=== PATIENT | male | born 1970 | race Two or more races ===

== ENCOUNTER 2020-06-08 22:50 | Inpatient (IN) | payer OTHER, MEDICAID ==
[~2020-06-08] VITALS: Ht 167.6 cm; Wt 115.6 kg
[~2020-06-08 22:50] MED LIST: CLIN75CA2 PO
[2020-06-08] MEDS ORDERED: LORazepam 2MG/ML-1ML VIAL ONE (23:55)
[2020-06-09] VITALS (10 sets, daily range): BP systolic 94–153; BP diastolic 55–104
[2020-06-09] MEDS ORDERED: ETOMIDATE (2MG/ML) 20ML VIAL IV ONE ×2 (00:19→00:36)
[2020-06-09] MEDS ORDERED: SUCCINYLCHOLINE CHLORIDE 20 MG/ML 10ML VIAL IV ONE ×2 (00:20→00:37)
[2020-06-09] MEDS ORDERED: MIDAZOLAM HCL 5 MG/ML-1ML VIAL ONE (00:20)
[2020-06-09] MEDS ORDERED: LACTATED RINGER'S 1,000 ML IV ONE (00:30)
[2020-06-09] MEDS ORDERED: LORazepam 2MG/ML-1ML VIAL IV ONE (00:30)
[2020-06-09] MEDS ORDERED: MIDAZOLAM HCL 5 MG/ML-1ML VIAL IV ONE (00:35)
[2020-06-09] MEDS ORDERED: MIDAZOLAM DRIP 50 mg/50mL 50 ML IV ONE (00:44)
[2020-06-09] MEDS: MIDAZOLAM DRIP 50 mg/50mL 50 ML IV SCH (00:50)
[2020-06-09] MEDS ORDERED: PROPOFOL 100 ML IV ONE (01:20)
[2020-06-09] MEDS ORDERED: PIPERACILLIN-TAZO 4.5GM 100 ML IV ONE (01:30)
[2020-06-09] MEDS ORDERED: DexAMETHasone SOD PHOS 10MG/1ML VIAL INJ IV ONE (01:30)
[2020-06-09] MEDS ORDERED: AZITHROMYCIN 500MG/ 250ML 250 ML IV ONE (01:30)
[2020-06-09] MEDS: PROPOFOL 100 ML IV SCH (01:31)
[2020-06-09 02:20] LABS: Basophils # (auto) 0 10 ^3/uL (0-0.2); Basophils % (auto) 0.1 % (0.0-2.0); Eosinophils # (auto) 0 10 ^3/uL (0-0.8); Hematocrit 31.1 % (41.0-53.0); Hemoglobin 10.4 g/dL (13.5-17.5); Lymphocytes # (auto) 0.4 10 ^3/uL (0.4-5.4); Lymphocytes % (auto) 7.5 % (10.0-50.0); Mean Corpuscular Hemoglobin 27.2 pg (28.0-32.0); Mean Corpuscular Hgb Conc. 33.4 g/dL (32.0-36.0); Mean Corpuscular Volume 81.3 fL (80.0-100.0); Monocytes # (auto) 0.2 10 ^3/uL (0-1.3); Neutrophils # (auto) 5.2 10 ^3/uL (1.6-8.6); Neutrophils % (auto) 89.4 % (37.0-80.0); Platelet Count (auto) 280 10^3/uL (140-450); Red Blood Cells 3.83 10^6/uL (4.5-5.90); Red Cell Distribution Width 13.6 % (11.8-14.3); White Blood Cell 5.9 10^3/uL (4.4-10.8)
[2020-06-09 02:34] LABS: Partial Thromboplastin Time 29.2 sec (23.0-31.2)
[2020-06-09 02:38] LABS: Albumin 2.5 g/dL (3.4-5.0); BUN/Creatinine Ratio 10.5; Calcium 7.5 mg/dL (8.5-10.1); Magnesium 1.9 mg/dL (1.6-2.6); Potassium 3.2 mmol/L (3.5-5.1)
[2020-06-09 02:42] LABS: Bilirubin, Total 0.5 mg/dL (0.2-1.0); Total Protein 6.3 g/dL (6.4-8.2)
[2020-06-09] MEDS ORDERED: MORPHINE SULF INJ 2 MG/ML SYRINGE 1ML IV PRN ×2 (03:00)
[2020-06-09] MEDS ORDERED: DOCUSATE SOD 100 MG CAP PO PRN (03:00)
[2020-06-09] MEDS ORDERED: ACETAMINOPHEN 500 MG TAB PO PRN (03:00)
[2020-06-09] MEDS ORDERED: LORazepam 0.5 MG TAB PO PRN (03:00)
[2020-06-09] MEDS ORDERED: HYDROcodone-ACET 5/325MG TAB PO PRN (03:00)
[2020-06-09] MEDS ORDERED: HYDROmorphone HCL 2 MG/ML VL IV PRN (03:00)
[2020-06-09] MEDS ORDERED: MAGNESIUM SULFATE 1GM/100ML 100 ML IV ONE (03:00)
[2020-06-09] MEDS ORDERED: NITROGLYCERIN 0.4 MG SL TAB SL PRN (03:00)
[2020-06-09] MEDS ORDERED: FUROSEMIDE 20 MG/2 ML VIAL IV ONE (03:00)
[2020-06-09] MEDS ORDERED: METOCLOPRAMIDE HCL 5MG/ml INJ 2ml VIAL IV PRN (03:00)
[2020-06-09 03:15] LABS: Lactate Dehydrogenase 447 U/L (87-241)
[2020-06-09 04:05] LABS: CRP High Sensitivity > 19.0 mg/dL (< 0.3)
[2020-06-09 04:59] LABS: Cholesterol 101 mg/dL (< 200); HDL Cholesterol 35 mg/dL (40-59); LDL Cholesterol 53 mg/dL (< 100); Triglycerides 121 mg/dL (< 150)
[2020-06-09] MEDS: SODIUM CHLOR 0.9% PF (SALINE LOCK) 10ML VIAL/SYR IV SCH ×3 (06:00→23:10)
[2020-06-09] MEDS ORDERED: ALBUTEROL SULF HFA 90MCG INH 200DOSE IN SCH (06:00)
[2020-06-09] MEDS: BUDESONIDE (INHALATION) 0.5 MG/2 ML NEB NEB SCH ×2 (06:10→22:13)
[2020-06-09] MEDS: ALBUTEROL SULF 2.5 MG/0.5ML(0.5%) NEB SOLN NEB SCH ×3 (06:10→22:13)
[2020-06-09 06:55] LABS: Urine Bacteria NONE SEEN /hpf (None Seen); Urine Blood Negative /uL (Negative); Urine Hyaline Cast FEW /lpf (0 - 2); Urine Mucus FEW (None Seen); Urine Specific Gravity 1.016 (1.001-1.035); Urine WBC 2 /hpf (0 - 3)
[2020-06-09] MEDS ORDERED: fentaNYL Drip 2500mCg/250mlNS 250 ML IV ONE (07:59)
[2020-06-09] MEDS: fentaNYL Drip 2500mCg/250mlNS 250 ML IV SCH (07:59)
[2020-06-09 09:07] LABS: Potassium 3.4 mmol/L (3.5-5.1)
[2020-06-09] MEDS: POTASSIUM CHL 20MEQ/100ML 100 ML IV SCH ×2 (09:22→12:33)
[2020-06-09] MEDS: PIPERACILLIN-TAZOB 3.375GM 100 ML IV SCH ×3 (09:23→23:10)
[2020-06-09] MEDS ORDERED: BUDESONIDE (INHALATION) 180 MCG IH IN SCH (10:00)
[2020-06-09] MEDS: FUROSEMIDE 40 MG/4 ML VIAL IV SCH ×2 (12:33→23:09)
[2020-06-09] MEDS: ENOXAPARIN SOD 40 MG/0.4 ML SYRINGE SC SCH ×2 (12:33→23:09)
[2020-06-09] MEDS: ASCORBIC ACID 1,000 MG TAB PO SCH (12:33)
[2020-06-09] MEDS: CHOLECALCIFEROL (VITD3) 2,000 UNIT CAP PO SCH (12:33)
[2020-06-09] MEDS: DOXYCYCLINE 100MG/250ML 250 ML IV SCH ×2 (12:33→23:10)
[2020-06-09] MEDS: ZINC SULFATE 220mg CAP or TAB PO SCH (12:33)
[2020-06-09] MEDS ORDERED: DexAMETHasone SOD PHOS 4 MG/1ML SDV INJ ONE (13:15)
[2020-06-09] MEDS: FAMOTIDINE INJECTION 40 MG in SODIUM CHL 0.9% 100 ML IV SCH (13:17)
[2020-06-09] MEDS: DexAMETHasone SOD PHOS 10MG/1ML VIAL INJ IV SCH (13:17)
[2020-06-09] MEDS ORDERED: REMDESIVIR PER PHARMACY IV SCH (19:30)
[2020-06-09] MEDS ORDERED: REMDESIVIR 200 MG in NS 210ml LOADING DOSE ADULT IV ONE (21:00)
[2020-06-10] MEDS: PROPOFOL 100 ML IV SCH (02:05)
[2020-06-10] MEDS: MIDAZOLAM DRIP 50 mg/50mL 50 ML IV SCH (02:06)
[2020-06-10] MEDS ORDERED: ALBUTEROL SULF 2.5 MG/0.5ML(0.5%) NEB SOLN NEB ONE (02:15)
[2020-06-10] MEDS ORDERED: ALBUTEROL SULF 2.5 MG/0.5ML(0.5%) NEB SOLN ONE (02:17)
[2020-06-10 02:40] VITALS: BP 113/65
[2020-06-10] MEDS: PIPERACILLIN-TAZOB 3.375GM 100 ML IV SCH ×3 (05:45→21:45)
[2020-06-10] MEDS: ALBUTEROL SULF 2.5 MG/0.5ML(0.5%) NEB SOLN NEB SCH (06:00)
[2020-06-10] MEDS: SODIUM CHLOR 0.9% PF (SALINE LOCK) 10ML VIAL/SYR IV SCH ×3 (06:04→21:44)
[2020-06-10 06:50] VITALS: BP 131/69
[2020-06-10 06:51] LABS: Basophils # (auto) 0 10 ^3/uL (0-0.2); Basophils % (auto) 0.2 % (0.0-2.0); Eosinophils # (auto) 0 10 ^3/uL (0-0.8); Mean Corpuscular Hgb Conc. 32.8 g/dL (32.0-36.0); Mean Corpuscular Volume 82.2 fL (80.0-100.0); Monocytes # (auto) 0.5 10 ^3/uL (0-1.3); Red Cell Distribution Width 13.7 % (11.8-14.3)
[2020-06-10 06:55] LABS: Eosinophils % (auto) 0.3 % (0.0-7.0); Hematocrit 33.5 % (41.0-53.0); Lymphocytes # (auto) 0.6 10 ^3/uL (0.4-5.4); Lymphocytes % (auto) 6.8 % (10.0-50.0); Monocytes % (auto) 5.5 % (0.0-12.0); Neutrophils # (auto) 8.2 10 ^3/uL (1.6-8.6); Neutrophils % (auto) 87.2 % (37.0-80.0); Nucleated Red Blood Cells % 0.1 %; Platelet Count (auto) 275 10^3/uL (140-450); Red Blood Cells 4.08 10^6/uL (4.5-5.90); White Blood Cell 9.4 10^3/uL (4.4-10.8)
[2020-06-10 07:06] LABS: INR 0.95 (0.9-1.15); Partial Thromboplastin Time 21.1 sec (23.0-31.2)
[2020-06-10 07:10] LABS: Albumin 2.4 g/dL (3.4-5.0); Calcium 8.6 mg/dL (8.5-10.1); Magnesium 2.6 mg/dL (1.6-2.6); Potassium 4.4 mmol/L (3.5-5.1)
[2020-06-10 07:15] LABS: Bilirubin, Total 0.3 mg/dL (0.2-1.0); Total Protein 6.2 g/dL (6.4-8.2)
[2020-06-10] MEDS: BUDESONIDE (INHALATION) 0.5 MG/2 ML NEB NEB SCH (07:39)
[2020-06-10] MEDS: fentaNYL Drip 2500mCg/250mlNS 250 ML IV SCH (09:38)
[2020-06-10] MEDS: FUROSEMIDE 40 MG/4 ML VIAL IV SCH ×2 (09:50→21:45)
[2020-06-10] MEDS: DexAMETHasone SOD PHOS 10MG/1ML VIAL INJ IV SCH (09:50)
[2020-06-10] MEDS: ENOXAPARIN SOD 40 MG/0.4 ML SYRINGE SC SCH ×2 (09:51→21:44)
[2020-06-10] MEDS: ZINC SULFATE 220mg CAP or TAB PO SCH (09:51)
[2020-06-10] MEDS: CHOLECALCIFEROL (VITD3) 2,000 UNIT CAP PO SCH (09:51)
[2020-06-10] MEDS: ASCORBIC ACID 1,000 MG TAB PO SCH (09:51)
[2020-06-10] MEDS: DOXYCYCLINE 100MG/250ML 250 ML IV SCH ×2 (09:51→21:45)
[2020-06-10 09:58] VITALS: BP 132/76
[2020-06-10] MEDS: FAMOTIDINE INJECTION 40 MG in SODIUM CHL 0.9% 100 ML IV SCH (10:08)
[2020-06-10 14:33] VITALS: BP 127/70
[2020-06-10] MEDS: ACETAMINOPHEN 500 MG TAB PO PRN ×2 (15:06→22:14)
[2020-06-10] MEDS: REMDESIVIR 100 MG in SODIUM CHL 0.9% 250 ML IV SCH (17:19)
[2020-06-10 18:00] VITALS: BP 113/61
[2020-06-10 22:00] VITALS: BP 121/68
[2020-06-11] MEDS: ALBUTEROL SULF 2.5 MG/0.5ML(0.5%) NEB SOLN NEB SCH ×4 (01:34→18:32)
[2020-06-11] MEDS: BUDESONIDE (INHALATION) 0.5 MG/2 ML NEB NEB SCH ×3 (01:35→18:32)
[2020-06-11] MEDS: MIDAZOLAM DRIP 50 mg/50mL 50 ML IV SCH (01:45)
[2020-06-11] MEDS: PROPOFOL 100 ML IV SCH (02:00)
[2020-06-11 02:05] VITALS: BP 126/70
[2020-06-11] MEDS: ACETAMINOPHEN 500 MG TAB PO PRN (04:11)
[2020-06-11] MEDS: PIPERACILLIN-TAZOB 3.375GM 100 ML IV SCH ×3 (05:37→22:00)
[2020-06-11] MEDS: SODIUM CHLOR 0.9% PF (SALINE LOCK) 10ML VIAL/SYR IV SCH ×3 (05:38→22:00)
[2020-06-11 06:03] VITALS: BP 134/64
[2020-06-11 06:46] LABS: Basophils # (auto) 0 10 ^3/uL (0-0.2); Basophils % (auto) 0.2 % (0.0-2.0); Eosinophils # (auto) 0 10 ^3/uL (0-0.8); Eosinophils % (auto) 0.1 % (0.0-7.0); Hematocrit 32.8 % (41.0-53.0); Lymphocytes # (auto) 0.8 10 ^3/uL (0.4-5.4); Red Blood Cells 4.01 10^6/uL (4.5-5.90)
[2020-06-11 06:48] LABS: Hemoglobin 11.3 g/dL (13.5-17.5); Lymphocytes % (auto) 8.2 % (10.0-50.0); Mean Corpuscular Hemoglobin 28.2 pg (28.0-32.0); Mean Corpuscular Hgb Conc. 34.4 g/dL (32.0-36.0); Monocytes # (auto) 0.4 10 ^3/uL (0-1.3); Monocytes % (auto) 4.7 % (0.0-12.0); Neutrophils # (auto) 8.1 10 ^3/uL (1.6-8.6); Neutrophils % (auto) 86.8 % (37.0-80.0); Nucleated Red Blood Cells % 0.1 %; Platelet Count (auto) 291 10^3/uL (140-450); Red Cell Distribution Width 13.7 % (11.8-14.3); White Blood Cell 9.4 10^3/uL (4.4-10.8)
[2020-06-11 07:07] LABS: Potassium 3.9 mmol/L (3.5-5.1)
[2020-06-11 07:13] LABS: Calcium 8.3 mg/dL (8.5-10.1); Magnesium 2.4 mg/dL (1.6-2.6)
[2020-06-11] MEDS: fentaNYL Drip 2500mCg/250mlNS 250 ML IV SCH ×2 (09:30→21:42)
[2020-06-11] MEDS: CHOLECALCIFEROL (VITD3) 2,000 UNIT CAP PO SCH (10:00)
[2020-06-11] MEDS: DexAMETHasone SOD PHOS 10MG/1ML VIAL INJ IV SCH (10:00)
[2020-06-11] MEDS: ZINC SULFATE 220mg CAP or TAB PO SCH (10:00)
[2020-06-11] MEDS: FAMOTIDINE INJECTION 40 MG in SODIUM CHL 0.9% 100 ML IV SCH (10:00)
[2020-06-11] MEDS: ASCORBIC ACID 1,000 MG TAB PO SCH (10:00)
[2020-06-11 10:11] VITALS: BP 136/59
[2020-06-11] MEDS: DOXYCYCLINE 100MG/250ML 250 ML IV SCH ×2 (11:25→22:00)
[2020-06-11] MEDS: FUROSEMIDE 40 MG/4 ML VIAL IV SCH (11:25)
[2020-06-11] MEDS: ENOXAPARIN SOD 40 MG/0.4 ML SYRINGE SC SCH ×2 (11:27→22:00)
[2020-06-11] MEDS: SODIUM CHLORIDE 0.9% 1,000 ML IV SCH ×2 (13:10→22:47)
[2020-06-11 15:04] VITALS: BP 144/73
[2020-06-11 18:32] VITALS: BP 148/60
[2020-06-11] MEDS: REMDESIVIR 100 MG in SODIUM CHL 0.9% 250 ML IV SCH (18:38)
[2020-06-11 21:55] VITALS: BP 135/61
[2020-06-12] MEDS: MIDAZOLAM DRIP 50 mg/50mL 50 ML IV SCH (01:07)
[2020-06-12] MEDS: PROPOFOL 100 ML IV SCH (01:08)
[2020-06-12 01:25] VITALS: BP 126/52
[2020-06-12 01:58] LABS: Basophils # (auto) 0 10 ^3/uL (0-0.2); Basophils % (auto) 0.1 % (0.0-2.0); Eosinophils # (auto) 0 10 ^3/uL (0-0.8); Eosinophils % (auto) 0.2 % (0.0-7.0); Hematocrit 28.7 % (41.0-53.0); Hemoglobin 9.5 g/dL (13.5-17.5); Lymphocytes # (auto) 0.5 10 ^3/uL (0.4-5.4); Lymphocytes % (auto) 5.1 % (10.0-50.0); Mean Corpuscular Hemoglobin 27.4 pg (28.0-32.0); Mean Corpuscular Hgb Conc. 33.2 g/dL (32.0-36.0); Mean Corpuscular Volume 82.5 fL (80.0-100.0); Monocytes # (auto) 0.3 10 ^3/uL (0-1.3); Monocytes % (auto) 3.3 % (0.0-12.0); Neutrophils % (auto) 91.3 % (37.0-80.0); Platelet Count (auto) 225 10^3/uL (140-450); Red Blood Cells 3.48 10^6/uL (4.5-5.90); Red Cell Distribution Width 13.6 % (11.8-14.3); White Blood Cell 9.8 10^3/uL (4.4-10.8)
[2020-06-12] MEDS: SODIUM CHLOR 0.9% PF (SALINE LOCK) 10ML VIAL/SYR IV SCH ×3 (05:56→22:16)
[2020-06-12] MEDS: PIPERACILLIN-TAZOB 3.375GM 100 ML IV SCH ×3 (06:14→22:24)
[2020-06-12 07:14] VITALS: BP 134/57
[2020-06-12] MEDS: ALBUTEROL SULF 2.5 MG/0.5ML(0.5%) NEB SOLN NEB SCH ×2 (07:14→14:40)
[2020-06-12] MEDS: BUDESONIDE (INHALATION) 0.5 MG/2 ML NEB NEB SCH ×2 (07:14→22:00)
[2020-06-12] MEDS: SODIUM CHLORIDE 0.9% 1,000 ML IV SCH ×2 (08:30→18:14)
[2020-06-12] MEDS ORDERED: ACETAMINOPHEN 650 mg PER 20.3 mL UD PO ONE (08:30)
[2020-06-12] MEDS: FUROSEMIDE 20 MG/2 ML VIAL IV SCH (09:16)
[2020-06-12] MEDS: DexAMETHasone SOD PHOS 10MG/1ML VIAL INJ IV SCH (09:16)
[2020-06-12] MEDS: DOXYCYCLINE 100MG/250ML 250 ML IV SCH ×2 (09:16→22:24)
[2020-06-12] MEDS: CHOLECALCIFEROL (VITD3) 2,000 UNIT CAP PO SCH (09:17)
[2020-06-12] MEDS: ZINC SULFATE 220mg CAP or TAB PO SCH (09:17)
[2020-06-12] MEDS: ENOXAPARIN SOD 40 MG/0.4 ML SYRINGE SC SCH ×2 (09:17→22:16)
[2020-06-12] MEDS: ASCORBIC ACID 1,000 MG TAB PO SCH (09:17)
[2020-06-12 09:29] LABS: Basophils # (auto) 0 10 ^3/uL (0-0.2); Eosinophils # (auto) 0 10 ^3/uL (0-0.8); Eosinophils % (auto) 0.4 % (0.0-7.0); Lymphocytes # (auto) 0.7 10 ^3/uL (0.4-5.4); Monocytes # (auto) 0.4 10 ^3/uL (0-1.3)
[2020-06-12 09:31] LABS: Basophils % (auto) 0.3 % (0.0-2.0); Hematocrit 30.9 % (41.0-53.0); Hemoglobin 10.2 g/dL (13.5-17.5); Lymphocytes % (auto) 6.2 % (10.0-50.0); Mean Corpuscular Hemoglobin 27.1 pg (28.0-32.0); Mean Corpuscular Hgb Conc. 32.8 g/dL (32.0-36.0); Mean Corpuscular Volume 82.5 fL (80.0-100.0); Monocytes % (auto) 3.5 % (0.0-12.0); Neutrophils # (auto) 9.4 10 ^3/uL (1.6-8.6); Neutrophils % (auto) 89.6 % (37.0-80.0); Platelet Count (auto) 238 10^3/uL (140-450); Red Blood Cells 3.75 10^6/uL (4.5-5.90); Red Cell Distribution Width 13.9 % (11.8-14.3); White Blood Cell 10.5 10^3/uL (4.4-10.8)
[2020-06-12 09:45] LABS: Albumin 1.9 g/dL (3.4-5.0); Calcium 8.1 mg/dL (8.5-10.1); Potassium 4.2 mmol/L (3.5-5.1)
[2020-06-12 09:51] LABS: BUN/Creatinine Ratio 26.5; Bilirubin, Total 0.6 mg/dL (0.2-1.0); Total Protein 5.3 g/dL (6.4-8.2)
[2020-06-12] MEDS ORDERED: ACETAMINOPHEN IV 1000 MG/100ML (10MG/ML) IV ONE (10:00)
[2020-06-12] MEDS: PATIENTS OWN MEDICATION PO SCH (10:00)
[2020-06-12] MEDS: FAMOTIDINE INJECTION 40 MG in SODIUM CHL 0.9% 100 ML IV SCH (10:00)
[2020-06-12 10:10] VITALS: BP 108/49
[2020-06-12 14:40] VITALS: BP 106/52
[2020-06-12] MEDS: REMDESIVIR 100 MG in SODIUM CHL 0.9% 250 ML IV SCH (17:16)
[2020-06-12 18:10] VITALS: BP 119/48
[2020-06-12] MEDS: ACETAMINOPHEN 500 MG TAB PO PRN (22:16)
[2020-06-12 22:20] VITALS: BP 102/51
[2020-06-13] MEDS: ALBUTEROL SULF 2.5 MG/0.5ML(0.5%) NEB SOLN NEB SCH ×4 (00:09→18:48)
[2020-06-13] MEDS: MIDAZOLAM DRIP 50 mg/50mL 50 ML IV SCH (02:00)
[2020-06-13] MEDS: PROPOFOL 100 ML IV SCH (02:00)
[2020-06-13 02:20] VITALS: BP 101/50
[2020-06-13] MEDS: SODIUM CHLORIDE 0.9% 1,000 ML IV SCH ×2 (04:34→14:32)
[2020-06-13] MEDS: PIPERACILLIN-TAZOB 3.375GM 100 ML IV SCH ×3 (05:28→22:00)
[2020-06-13] MEDS: SODIUM CHLOR 0.9% PF (SALINE LOCK) 10ML VIAL/SYR IV SCH ×3 (05:29→22:00)
[2020-06-13] MEDS: ACETAMINOPHEN 500 MG TAB PO PRN ×2 (05:43→18:16)
[2020-06-13 05:55] VITALS: BP 104/48
[2020-06-13] MEDS: BUDESONIDE (INHALATION) 0.5 MG/2 ML NEB NEB SCH ×2 (05:55→18:48)
[2020-06-13] MEDS ORDERED: ACETAMINOPHEN 650 mg PER 20.3 mL UD ONE (07:37)
[2020-06-13 07:41] LABS: Basophils # (auto) 0 10 ^3/uL (0-0.2); Eosinophils # (auto) 0 10 ^3/uL (0-0.8); Hemoglobin 10.1 g/dL (13.5-17.5); Lymphocytes # (auto) 0.5 10 ^3/uL (0.4-5.4); Mean Corpuscular Volume 82.6 fL (80.0-100.0); Monocytes # (auto) 0.5 10 ^3/uL (0-1.3); Monocytes % (auto) 5.4 % (0.0-12.0); Nucleated Red Blood Cells % 0.1 %; White Blood Cell 9.1 10^3/uL (4.4-10.8)
[2020-06-13 07:43] LABS: Basophils % (auto) 0.2 % (0.0-2.0); Eosinophils % (auto) 0.1 % (0.0-7.0); Hematocrit 30.7 % (41.0-53.0); Lymphocytes % (auto) 5.9 % (10.0-50.0); Mean Corpuscular Hemoglobin 27.1 pg (28.0-32.0); Mean Corpuscular Hgb Conc. 32.8 g/dL (32.0-36.0); Neutrophils % (auto) 88.4 % (37.0-80.0); Platelet Count (auto) 231 10^3/uL (140-450); Red Blood Cells 3.71 10^6/uL (4.5-5.90); Red Cell Distribution Width 13.9 % (11.8-14.3)
[2020-06-13 08:04] LABS: Albumin 1.9 g/dL (3.4-5.0); Calcium 8.6 mg/dL (8.5-10.1); Potassium 4.8 mmol/L (3.5-5.1)
[2020-06-13 08:08] LABS: BUN/Creatinine Ratio 37.7; Bilirubin, Total 0.4 mg/dL (0.2-1.0); Total Protein 5.9 g/dL (6.4-8.2)
[2020-06-13] MEDS: fentaNYL Drip 2500mCg/250mlNS 250 ML IV SCH (09:45)
[2020-06-13 09:55] VITALS: BP 105/53
[2020-06-13] MEDS: PATIENTS OWN MEDICATION PO SCH (10:42)
[2020-06-13] MEDS: ENOXAPARIN SOD 40 MG/0.4 ML SYRINGE SC SCH ×2 (10:42→23:00)
[2020-06-13] MEDS: DexAMETHasone SOD PHOS 10MG/1ML VIAL INJ IV SCH (11:35)
[2020-06-13] MEDS: DOXYCYCLINE 100MG/250ML 250 ML IV SCH ×2 (11:35→23:00)
[2020-06-13] MEDS: FUROSEMIDE 20 MG/2 ML VIAL IV SCH (11:35)
[2020-06-13] MEDS: CHOLECALCIFEROL (VITD3) 2,000 UNIT CAP PO SCH (11:36)
[2020-06-13] MEDS: ZINC SULFATE 220mg CAP or TAB PO SCH (11:36)
[2020-06-13] MEDS: ASCORBIC ACID 1,000 MG TAB PO SCH (11:36)
[2020-06-13 13:30] VITALS: BP 110/51
[2020-06-13] MEDS: FAMOTIDINE INJECTION 40 MG in SODIUM CHL 0.9% 100 ML IV SCH (14:07)
[2020-06-13] MEDS: REMDESIVIR 100 MG in SODIUM CHL 0.9% 250 ML IV SCH (17:17)
[2020-06-13 18:48] VITALS: BP 114/56
[2020-06-13 22:14] VITALS: BP 119/55
[2020-06-14] MEDS: SODIUM CHLORIDE 0.9% 1,000 ML IV SCH ×3 (00:30→20:38)
[2020-06-14 01:27] VITALS: BP 115/54
[2020-06-14] MEDS: PROPOFOL 100 ML IV SCH (01:45)
[2020-06-14] MEDS: MIDAZOLAM DRIP 50 mg/50mL 50 ML IV SCH (01:45)
[2020-06-14] MEDS: SODIUM CHLOR 0.9% PF (SALINE LOCK) 10ML VIAL/SYR IV SCH ×3 (06:15→22:23)
[2020-06-14] MEDS: PIPERACILLIN-TAZOB 3.375GM 100 ML IV SCH ×3 (06:27→22:23)
[2020-06-14 07:03] VITALS: BP 110/57
[2020-06-14] MEDS: ALBUTEROL SULF 2.5 MG/0.5ML(0.5%) NEB SOLN NEB SCH ×3 (07:09→22:00)
[2020-06-14] MEDS: BUDESONIDE (INHALATION) 0.5 MG/2 ML NEB NEB SCH ×2 (07:09→22:00)
[2020-06-14] MEDS: PATIENTS OWN MEDICATION PO SCH (10:00)
[2020-06-14] MEDS: fentaNYL Drip 2500mCg/250mlNS 250 ML IV SCH (10:37)
[2020-06-14] MEDS ORDERED: ACETAMINOPHEN 325 MG RECT SUPP PR ONE (10:45)
[2020-06-14 10:48] VITALS: BP 114/53
[2020-06-14] MEDS ORDERED: ACETAMINOPHEN 650 MG RECT SUPP PR ONE ×2 (10:53→12:45)
[2020-06-14] MEDS: ZINC SULFATE 220mg CAP or TAB PO SCH (11:00)
[2020-06-14] MEDS: ENOXAPARIN SOD 40 MG/0.4 ML SYRINGE SC SCH ×2 (11:00→22:23)
[2020-06-14] MEDS: CHOLECALCIFEROL (VITD3) 2,000 UNIT CAP PO SCH (11:00)
[2020-06-14] MEDS: ASCORBIC ACID 1,000 MG TAB PO SCH (11:00)
[2020-06-14] MEDS: FUROSEMIDE 20 MG/2 ML VIAL IV SCH (11:00)
[2020-06-14] MEDS: DexAMETHasone SOD PHOS 10MG/1ML VIAL INJ IV SCH (11:00)
[2020-06-14] MEDS ORDERED: FAMOTIDINE (10MG/ML) 2ML VL IV ONE (12:55)
[2020-06-14] MEDS: FAMOTIDINE INJECTION 40 MG in SODIUM CHL 0.9% 100 ML IV SCH (13:05)
[2020-06-14 14:48] VITALS: BP 136/59
[2020-06-14 19:16] VITALS: BP 123/52
[2020-06-14 21:45] VITALS: BP 125/67
[2020-06-14] MEDS: ACETAMINOPHEN 500 MG TAB PO PRN (22:39)
[2020-06-15] VITALS (48 sets, daily range): BP systolic 103–172; BP diastolic 41–82
[2020-06-15] MEDS: MIDAZOLAM DRIP 50 mg/50mL 50 ML IV SCH ×4 (01:49→22:00)
[2020-06-15] MEDS: PROPOFOL 100 ML IV SCH ×6 (01:49→21:00)
[2020-06-15] MEDS: ALBUTEROL SULF 2.5 MG/0.5ML(0.5%) NEB SOLN NEB SCH ×3 (06:00→23:35)
[2020-06-15] MEDS: BUDESONIDE (INHALATION) 0.5 MG/2 ML NEB NEB SCH ×2 (06:00→23:35)
[2020-06-15] MEDS: SODIUM CHLOR 0.9% PF (SALINE LOCK) 10ML VIAL/SYR IV SCH ×3 (06:02→22:25)
[2020-06-15] MEDS: PIPERACILLIN-TAZOB 3.375GM 100 ML IV SCH ×3 (06:02→22:25)
[2020-06-15] MEDS: SODIUM CHLORIDE 0.9% 1,000 ML IV SCH ×2 (06:02→16:30)
[2020-06-15] MEDS: ENOXAPARIN SOD 40 MG/0.4 ML SYRINGE SC SCH ×2 (09:54→22:25)
[2020-06-15] MEDS: FUROSEMIDE 20 MG/2 ML VIAL IV SCH (09:54)
[2020-06-15] MEDS: ASCORBIC ACID 1,000 MG TAB PO SCH (09:55)
[2020-06-15] MEDS: CHOLECALCIFEROL (VITD3) 2,000 UNIT CAP PO SCH (09:55)
[2020-06-15] MEDS: ZINC SULFATE 220mg CAP or TAB PO SCH (09:55)
[2020-06-15] MEDS: PATIENTS OWN MEDICATION PO SCH (10:00)
[2020-06-15] MEDS: fentaNYL Drip 2500mCg/250mlNS 250 ML IV SCH ×2 (10:20→20:00)
[2020-06-15] MEDS: DexAMETHasone SOD PHOS 10MG/1ML VIAL INJ IV SCH (10:40)
[2020-06-15 11:18] LABS: Basophils # (auto) 0 10 ^3/uL (0-0.2); Basophils % (auto) 0.3 % (0.0-2.0); Eosinophils # (auto) 0.1 10 ^3/uL (0-0.8); Monocytes # (auto) 0.8 10 ^3/uL (0-1.3)
[2020-06-15 11:29] LABS: Potassium 4.3 mmol/L (3.5-5.1)
[2020-06-15 11:30] LABS: BUN/Creatinine Ratio 52.9; Calcium 8.2 mg/dL (8.5-10.1); Magnesium 2.3 mg/dL (1.6-2.6)
[2020-06-15 11:42] LABS: Eosinophils % (auto) 0.9 % (0.0-7.0); Hematocrit 32.3 % (41.0-53.0); Hemoglobin 10.6 g/dL (13.5-17.5); Lymphocytes # (auto) 0.8 10 ^3/uL (0.4-5.4); Lymphocytes % (auto) 8.5 % (10.0-50.0); Mean Corpuscular Hemoglobin 28.3 pg (28.0-32.0); Mean Corpuscular Hgb Conc. 32.8 g/dL (32.0-36.0); Mean Corpuscular Volume 86.4 fL (80.0-100.0); Monocytes % (auto) 8.8 % (0.0-12.0); Neutrophils # (auto) 7.8 10 ^3/uL (1.6-8.6); Neutrophils % (auto) 81.5 % (37.0-80.0); Platelet Count (auto) 200 10^3/uL (140-450); Red Blood Cells 3.74 10^6/uL (4.5-5.90); Red Cell Distribution Width 13.6 % (11.8-14.3); White Blood Cell 9.5 10^3/uL (4.4-10.8)
[2020-06-15] MEDS ORDERED: VANCOMYCIN 1GM/250ML 250 ML IV ONE (13:45)
[2020-06-15] MEDS ORDERED: VANCOMYCIN PER PHARMACY 0 MG IV SCH (13:45)
[2020-06-15] MEDS: FAMOTIDINE INJECTION 40 MG in SODIUM CHL 0.9% 100 ML IV SCH (14:58)
[2020-06-15 16:23] LABS: INR 1.09 (0.9-1.15); Partial Thromboplastin Time 23.5 sec (23.0-31.2)
[2020-06-15] MEDS: Jevity 1.2 Cal/Fiber 1 Liter GT SCH (20:00)
[2020-06-15] MEDS: VANCOMYCIN 1GM/250ML 250 ML IV SCH (21:00)
[2020-06-16] VITALS (93 sets, daily range): BP systolic 80–206; BP diastolic 22–88
[2020-06-16] MEDS: PROPOFOL 100 ML IV SCH ×9 (00:30→22:15)
[2020-06-16] MEDS: MIDAZOLAM DRIP 50 mg/50mL 50 ML IV SCH ×4 (01:43→17:12)
[2020-06-16] MEDS: SODIUM CHLORIDE 0.9% 1,000 ML IV SCH ×3 (01:52→16:48)
[2020-06-16] MEDS: VANCOMYCIN 1GM/250ML 250 ML IV SCH ×3 (05:00→16:59)
[2020-06-16 05:33] LABS: Basophils # (auto) 0 10 ^3/uL (0-0.2); Eosinophils # (auto) 0.1 10 ^3/uL (0-0.8); Eosinophils % (auto) 1.9 % (0.0-7.0); Monocytes # (auto) 0.4 10 ^3/uL (0-1.3); Neutrophils # (auto) 4.4 10 ^3/uL (1.6-8.6); Nucleated Red Blood Cells % 0.1 %
[2020-06-16 05:37] LABS: Basophils % (auto) 0.3 % (0.0-2.0); Lymphocytes # (auto) 0.6 10 ^3/uL (0.4-5.4); Lymphocytes % (auto) 11.4 % (10.0-50.0); Monocytes % (auto) 7.3 % (0.0-12.0); Neutrophils % (auto) 79.1 % (37.0-80.0)
[2020-06-16 05:48] LABS: Potassium 4.9 mmol/L (3.5-5.1)
[2020-06-16] MEDS: SODIUM CHLOR 0.9% PF (SALINE LOCK) 10ML VIAL/SYR IV SCH ×3 (05:48→22:00)
[2020-06-16] MEDS: PIPERACILLIN-TAZOB 3.375GM 100 ML IV SCH ×2 (05:48→18:03)
[2020-06-16 05:55] LABS: Albumin 1.7 g/dL (3.4-5.0); BUN/Creatinine Ratio 66.7; Bilirubin, Total 0.4 mg/dL (0.2-1.0); Calcium 7.9 mg/dL (8.5-10.1); Magnesium 2.4 mg/dL (1.6-2.6); Total Protein 5.2 g/dL (6.4-8.2)
[2020-06-16 06:24] LABS: Hematocrit 29.2 % (41.0-53.0); Hemoglobin 9.6 g/dL (13.5-17.5); Mean Corpuscular Hemoglobin 26.9 pg (28.0-32.0); Mean Corpuscular Volume 81.8 fL (80.0-100.0); Platelet Count (auto) 158 10^3/uL (140-450); Red Blood Cells 3.56 10^6/uL (4.5-5.90); Red Cell Distribution Width 13.2 % (11.8-14.3); White Blood Cell 6.5 10^3/uL (4.4-10.8)
[2020-06-16 06:35] LABS: Mean Corpuscular Hgb Conc. 32.9 g/dL (32.0-36.0)
[2020-06-16] MEDS: ACETAMINOPHEN 500 MG TAB PO PRN (06:40)
[2020-06-16] MEDS: fentaNYL Drip 2500mCg/250mlNS 250 ML IV SCH ×2 (09:05→20:23)
[2020-06-16] MEDS: ENOXAPARIN SOD 40 MG/0.4 ML SYRINGE SC SCH ×2 (09:36→22:00)
[2020-06-16] MEDS: FUROSEMIDE 20 MG/2 ML VIAL IV SCH (09:37)
[2020-06-16] MEDS: CHOLECALCIFEROL (VITD3) 2,000 UNIT CAP PO SCH (09:38)
[2020-06-16] MEDS: ZINC SULFATE 220mg CAP or TAB PO SCH (09:38)
[2020-06-16] MEDS: ASCORBIC ACID 1,000 MG TAB PO SCH (09:38)
[2020-06-16] MEDS: DexAMETHasone SOD PHOS 10MG/1ML VIAL INJ IV SCH (09:39)
[2020-06-16] MEDS: PATIENTS OWN MEDICATION PO SCH (09:40)
[2020-06-16] MEDS: BUDESONIDE (INHALATION) 0.5 MG/2 ML NEB NEB SCH ×2 (09:59→21:45)
[2020-06-16] MEDS: ALBUTEROL SULF 2.5 MG/0.5ML(0.5%) NEB SOLN NEB SCH ×3 (09:59→21:45)
[2020-06-16] MEDS: NOREPINEPHRINE 8 MG/250ML KIT 250 ML IV SCH ×2 (10:15→16:39)
[2020-06-16] MEDS ORDERED: NOREPINEPHRINE 8 MG/250ML KIT 250 ML IV ONE (10:21)
[2020-06-16] MEDS ORDERED: PHENYLEPHRINE IV 250 ML IV ONE (10:38)
[2020-06-16] MEDS: PHENYLEPHRINE IV 250 ML IV SCH ×2 (10:41→19:20)
[2020-06-16] MEDS ORDERED: LORazepam 2MG/ML-1ML VIAL ONE (10:50)
[2020-06-16] MEDS ORDERED: ROCURONIUM 10MG/ML 10ML VIAL IV ONE (11:15)
[2020-06-16] MEDS ORDERED: EPINEPHrine HCL 1 MG/1 ML AMP ONE (11:20)
[2020-06-16] MEDS ORDERED: FLUMAZENIL 0.1 MG/ML INJ 10ML MDV IV ONE (11:20)
[2020-06-16] MEDS ORDERED: SODIUM CHLORIDE LOCK 0 ML ONE (11:20)
[2020-06-16] MEDS ORDERED: LIDOCAINE 2%HCL (LOCAL ANESTH.) INJ 20ML MDV ONE (11:20)
[2020-06-16] MEDS ORDERED: fentaNYL CITRATE 100 MCG/2 ML VL ONE (11:20)
[2020-06-16] MEDS ORDERED: LIDOCAINE HCL 2% TOP JELLY 5ML TOP ONE (11:20)
[2020-06-16] MEDS ORDERED: MIDAZOLAM HCL 5 MG/ML-1ML VIAL ONE (11:21)
[2020-06-16] MEDS ORDERED: FUROSEMIDE 40 MG/4 ML VIAL IV ONE (12:45)
[2020-06-16] MEDS ORDERED: ACETYLCYSTEINE 20%(200MG/ML) SOL 4ML ONE (13:35)
[2020-06-16] MEDS: FAMOTIDINE INJECTION 40 MG in SODIUM CHL 0.9% 100 ML IV SCH (13:41)
[2020-06-17] VITALS (93 sets, daily range): BP systolic 95–148; BP diastolic 42–66
[2020-06-17] MEDS: Jevity 1.2 Cal/Fiber 1 Liter GT SCH
[2020-06-17] MEDS: VANCOMYCIN 1GM/250ML 250 ML IV SCH ×2 (00:34→08:07)
[2020-06-17] MEDS: PIPERACILLIN-TAZOB 3.375GM 100 ML IV SCH ×3 (02:00→18:22)
[2020-06-17] MEDS: PHENYLEPHRINE IV 250 ML IV SCH ×3 (03:40→20:20)
[2020-06-17 04:26] LABS: Basophils # (auto) 0 10 ^3/uL (0-0.2); Eosinophils # (auto) 0 10 ^3/uL (0-0.8); Monocytes # (auto) 0.4 10 ^3/uL (0-1.3); Nucleated Red Blood Cells % 0.1 %
[2020-06-17 04:28] LABS: Basophils % (auto) 0.3 % (0.0-2.0); Lymphocytes # (auto) 0.6 10 ^3/uL (0.4-5.4); Lymphocytes % (auto) 7.3 % (10.0-50.0); Monocytes % (auto) 5.2 % (0.0-12.0); Neutrophils # (auto) 7.3 10 ^3/uL (1.6-8.6); Neutrophils % (auto) 87.2 % (37.0-80.0)
[2020-06-17] MEDS: MIDAZOLAM DRIP 50 mg/50mL 50 ML IV SCH ×3 (05:00→16:35)
[2020-06-17 05:02] LABS: Magnesium 2.3 mg/dL (1.6-2.6); Potassium 4.7 mmol/L (3.5-5.1)
[2020-06-17 05:04] LABS: BUN/Creatinine Ratio 35.3
[2020-06-17 05:34] LABS: Hemoglobin 9.8 g/dL (13.5-17.5); Mean Corpuscular Hemoglobin 26.7 pg (28.0-32.0); Mean Corpuscular Hgb Conc. 32.6 g/dL (32.0-36.0); Mean Corpuscular Volume 81.8 fL (80.0-100.0); Platelet Count (auto) 206 10^3/uL (140-450); Red Blood Cells 3.66 10^6/uL (4.5-5.90); Red Cell Distribution Width 13.4 % (11.8-14.3)
[2020-06-17] MEDS: SODIUM CHLOR 0.9% PF (SALINE LOCK) 10ML VIAL/SYR IV SCH ×4 (06:21→22:20)
[2020-06-17] MEDS: PROPOFOL 100 ML IV SCH ×7 (06:24→22:40)
[2020-06-17] MEDS: fentaNYL Drip 2500mCg/250mlNS 250 ML IV SCH ×2 (06:25→18:30)
[2020-06-17] MEDS: BUDESONIDE (INHALATION) 0.5 MG/2 ML NEB NEB SCH ×2 (06:30→22:01)
[2020-06-17] MEDS: ALBUTEROL SULF 2.5 MG/0.5ML(0.5%) NEB SOLN NEB SCH ×3 (06:30→22:01)
[2020-06-17] MEDS: NOREPINEPHRINE 8 MG/250ML KIT 250 ML IV SCH ×2 (08:08→17:15)
[2020-06-17] MEDS: SODIUM CHLORIDE 0.9% 1,000 ML IV SCH ×2 (08:10→18:22)
[2020-06-17] MEDS: FUROSEMIDE 20 MG/2 ML VIAL IV SCH (09:29)
[2020-06-17] MEDS: ENOXAPARIN SOD 40 MG/0.4 ML SYRINGE SC SCH ×2 (09:32→22:20)
[2020-06-17] MEDS: ASCORBIC ACID 1,000 MG TAB PO SCH (09:32)
[2020-06-17] MEDS: ZINC SULFATE 220mg CAP or TAB PO SCH (09:32)
[2020-06-17] MEDS: DexAMETHasone SOD PHOS 10MG/1ML VIAL INJ IV SCH (09:33)
[2020-06-17] MEDS: CHOLECALCIFEROL (VITD3) 2,000 UNIT CAP PO SCH (09:34)
[2020-06-17] MEDS: FAMOTIDINE INJECTION 40 MG in SODIUM CHL 0.9% 100 ML IV SCH (11:02)
[2020-06-17] MEDS: ACETAMINOPHEN 500 MG TAB PO PRN ×2 (15:02→22:30)
[2020-06-18] VITALS (98 sets, daily range): BP systolic 87–154; BP diastolic 39–66
[2020-06-18] MEDS: MIDAZOLAM DRIP 50 mg/50mL 50 ML IV SCH ×6 (01:11→23:22)
[2020-06-18] MEDS: PIPERACILLIN-TAZOB 3.375GM 100 ML IV SCH ×2 (02:00→09:47)
[2020-06-18] MEDS: PROPOFOL 100 ML IV SCH ×7 (04:20→23:22)
[2020-06-18] MEDS: PHENYLEPHRINE IV 250 ML IV SCH ×2 (04:40→13:00)
[2020-06-18] MEDS: SODIUM CHLORIDE 0.9% 1,000 ML IV SCH ×3 (06:00→17:09)
[2020-06-18] MEDS: SODIUM CHLOR 0.9% PF (SALINE LOCK) 10ML VIAL/SYR IV SCH ×5 (06:00→21:59)
[2020-06-18] MEDS: fentaNYL Drip 2500mCg/250mlNS 250 ML IV SCH ×2 (07:00→17:11)
[2020-06-18] MEDS: ALBUTEROL SULF 2.5 MG/0.5ML(0.5%) NEB SOLN NEB SCH ×3 (07:21→18:52)
[2020-06-18 08:06] LABS: BUN/Creatinine Ratio 35.6; Calcium 8.1 mg/dL (8.5-10.1); Potassium 4.7 mmol/L (3.5-5.1)
[2020-06-18 08:41] LABS: Basophils # (auto) 0 10 ^3/uL (0-0.2); Basophils % (auto) 0.1 % (0.0-2.0); Eosinophils # (auto) 0 10 ^3/uL (0-0.8); Hematocrit 25.1 % (41.0-53.0); Hemoglobin 8.2 g/dL (13.5-17.5); Lymphocytes # (auto) 0.9 10 ^3/uL (0.4-5.4); Lymphocytes % (auto) 10.3 % (10.0-50.0); Mean Corpuscular Hemoglobin 27.6 pg (28.0-32.0); Mean Corpuscular Hgb Conc. 32.8 g/dL (32.0-36.0); Mean Corpuscular Volume 84.2 fL (80.0-100.0); Monocytes # (auto) 0.6 10 ^3/uL (0-1.3); Monocytes % (auto) 6.6 % (0.0-12.0); Neutrophils # (auto) 7.6 10 ^3/uL (1.6-8.6); Nucleated Red Blood Cells % 0.4 %; Platelet Count (auto) 195 10^3/uL (140-450); Red Blood Cells 2.98 10^6/uL (4.5-5.90); Red Cell Distribution Width 13.7 % (11.8-14.3); White Blood Cell 9.1 10^3/uL (4.4-10.8)
[2020-06-18] MEDS ORDERED: VANCOMYCIN 1GM/250ML 250 ML IV SCH (09:15)
[2020-06-18] MEDS: FUROSEMIDE 20 MG/2 ML VIAL IV SCH (09:46)
[2020-06-18] MEDS: DexAMETHasone SOD PHOS 10MG/1ML VIAL INJ IV SCH (09:46)
[2020-06-18] MEDS: ZINC SULFATE 220mg CAP or TAB PO SCH (09:48)
[2020-06-18] MEDS: ASCORBIC ACID 1,000 MG TAB PO SCH (09:48)
[2020-06-18] MEDS: ENOXAPARIN SOD 40 MG/0.4 ML SYRINGE SC SCH ×2 (09:48→22:00)
[2020-06-18] MEDS: CHOLECALCIFEROL (VITD3) 2,000 UNIT CAP PO SCH (09:49)
[2020-06-18] MEDS: BUDESONIDE (INHALATION) 0.5 MG/2 ML NEB NEB SCH ×2 (10:00→18:52)
[2020-06-18] MEDS ORDERED: TPN PER PHARMACY 0 ML IV SCH (11:00)
[2020-06-18] MEDS: FAMOTIDINE INJECTION 40 MG in SODIUM CHL 0.9% 100 ML IV SCH (11:03)
[2020-06-18 14:19] LABS: Magnesium 2.4 mg/dL (1.6-2.6); Phosphorus 3.3 mg/dL (2.5-4.90)
[2020-06-18] MEDS: AMINO ACID INFUSION IN D10W 1,000 ML IV NR (19:58)
[2020-06-18] MEDS ORDERED: AMINO ACID INFUSION IN D5W 2,000 ML IV NR (20:00)
[2020-06-18] MEDS ORDERED: levETIRAcetam 500 MG/5ML INJ IV ONE (22:18)
[2020-06-19] VITALS (100 sets, daily range): BP systolic 76–142; BP diastolic 41–81
[2020-06-19] MEDS ORDERED: DEXTROSE (50%) 50ML SYRG IV SCH
[2020-06-19] MEDS: InsuLIN REG 1unit/0.01ml Soln (100units/ml) SC SCH ×5 (00:36→23:53)
[2020-06-19] MEDS: PROPOFOL 100 ML IV SCH ×7 (01:22→22:52)
[2020-06-19] MEDS: MIDAZOLAM DRIP 50 mg/50mL 50 ML IV SCH ×2 (03:03→05:32)
[2020-06-19 04:31] LABS: Eosinophils # (auto) 0 10 ^3/uL (0-0.8); Eosinophils % (auto) 0.2 % (0.0-7.0); Hemoglobin 7.1 g/dL (13.5-17.5); Lymphocytes # (auto) 0.9 10 ^3/uL (0.4-5.4); Neutrophils # (auto) 4.7 10 ^3/uL (1.6-8.6); White Blood Cell 6.2 10^3/uL (4.4-10.8)
[2020-06-19 04:32] LABS: Basophils # (auto) 0.1 10 ^3/uL (0-0.2); Basophils % (auto) 1.2 % (0.0-2.0); Hematocrit 19.1 % (41.0-53.0); Lymphocytes % (auto) 14.5 % (10.0-50.0); Mean Corpuscular Hemoglobin 34.5 pg (28.0-32.0); Mean Corpuscular Hgb Conc. 37.1 g/dL (32.0-36.0); Mean Corpuscular Volume 93.1 fL (80.0-100.0); Monocytes # (auto) 0.5 10 ^3/uL (0-1.3); Monocytes % (auto) 8.2 % (0.0-12.0); Neutrophils % (auto) 75.9 % (37.0-80.0); Nucleated Red Blood Cells % 0.4 %; Platelet Count (auto) 160 10^3/uL (140-450); Red Blood Cells 2.05 10^6/uL (4.5-5.90); Red Cell Distribution Width 12.8 % (11.8-14.3)
[2020-06-19 04:46] LABS: Magnesium 2.4 mg/dL (1.6-2.6); Potassium 4.1 mmol/L (3.5-5.1)
[2020-06-19 04:57] LABS: Albumin 1.9 g/dL (3.4-5.0); BUN/Creatinine Ratio 47.9; Bilirubin, Total 0.4 mg/dL (0.2-1.0); CRP High Sensitivity 2.98 mg/dL (< 0.3); Phosphorus 3.2 mg/dL (2.5-4.90); Total Protein 5.2 g/dL (6.4-8.2)
[2020-06-19] MEDS: fentaNYL Drip 2500mCg/250mlNS 250 ML IV SCH (05:37)
[2020-06-19] MEDS: SODIUM CHLOR 0.9% PF (SALINE LOCK) 10ML VIAL/SYR IV SCH ×5 (05:41→22:00)
[2020-06-19] MEDS: ACCU-CHEK COMFORT CURVE STRIP VI SCH ×5 (05:41→23:53)
[2020-06-19] MEDS: BUDESONIDE (INHALATION) 0.5 MG/2 ML NEB NEB SCH ×2 (07:54→22:46)
[2020-06-19] MEDS: ALBUTEROL SULF 2.5 MG/0.5ML(0.5%) NEB SOLN NEB SCH ×3 (07:55→22:46)
[2020-06-19] MEDS: FUROSEMIDE 20 MG/2 ML VIAL IV SCH (10:00)
[2020-06-19] MEDS: NOREPINEPHRINE 8 MG/250ML KIT 250 ML IV SCH (10:15)
[2020-06-19] MEDS: ZINC SULFATE 220mg CAP or TAB PO SCH (11:40)
[2020-06-19] MEDS: DexAMETHasone SOD PHOS 10MG/1ML VIAL INJ IV SCH (11:40)
[2020-06-19] MEDS: ASCORBIC ACID 1,000 MG TAB PO SCH (11:41)
[2020-06-19] MEDS: CHOLECALCIFEROL (VITD3) 2,000 UNIT CAP PO SCH (11:41)
[2020-06-19] MEDS: SODIUM CHLORIDE 0.9% 1,000 ML IV SCH (11:43)
[2020-06-19] MEDS: ENOXAPARIN SOD 40 MG/0.4 ML SYRINGE SC SCH ×2 (14:00→22:00)
[2020-06-19] MEDS: PHENYLEPHRINE IV 250 ML IV SCH ×2 (14:00→22:20)
[2020-06-19] MEDS: FAMOTIDINE INJECTION 40 MG in SODIUM CHL 0.9% 100 ML IV SCH (14:14)
[2020-06-19] MEDS: AMINO ACID INFUSION IN D10W 1,000 ML IV NR (19:49)
[2020-06-19] MEDS ORDERED: FUROSEMIDE 40 MG/4 ML VIAL IV ONE (20:00)
[2020-06-19] MEDS ORDERED: TPN PER PHARMACY IV NR ×6 (20:00)
[2020-06-20] VITALS (87 sets, daily range): BP systolic 71–156; BP diastolic 43–78
[2020-06-20 04:50] LABS: Basophils # (auto) 0 10 ^3/uL (0-0.2); Eosinophils # (auto) 0.1 10 ^3/uL (0-0.8); Monocytes # (auto) 0.6 10 ^3/uL (0-1.3); White Blood Cell 7.8 10^3/uL (4.4-10.8)
[2020-06-20 04:54] LABS: Basophils % (auto) 0.3 % (0.0-2.0); Eosinophils % (auto) 1.4 % (0.0-7.0); Hematocrit 22.4 % (41.0-53.0); Hemoglobin 7.8 g/dL (13.5-17.5); Lymphocytes # (auto) 1.3 10 ^3/uL (0.4-5.4); Lymphocytes % (auto) 16.7 % (10.0-50.0); Mean Corpuscular Hgb Conc. 34.9 g/dL (32.0-36.0); Mean Corpuscular Volume 88.6 fL (80.0-100.0); Monocytes % (auto) 7.3 % (0.0-12.0); Neutrophils # (auto) 5.8 10 ^3/uL (1.6-8.6); Neutrophils % (auto) 74.3 % (37.0-80.0); Nucleated Red Blood Cells % 0.2 %; Platelet Count (auto) 188 10^3/uL (140-450); Red Blood Cells 2.53 10^6/uL (4.5-5.90); Red Cell Distribution Width 12.9 % (11.8-14.3)
[2020-06-20 05:08] LABS: Potassium 3.4 mmol/L (3.5-5.1)
[2020-06-20 05:18] LABS: Albumin 1.9 g/dL (3.4-5.0); BUN/Creatinine Ratio 50.9; Bilirubin, Total 0.4 mg/dL (0.2-1.0); Calcium 8.1 mg/dL (8.5-10.1); Magnesium 2.4 mg/dL (1.6-2.6); Phosphorus 2.4 mg/dL (2.5-4.90)
[2020-06-20] MEDS ORDERED: MIDAZOLAM HCL 10 ML IV ONE (05:51)
[2020-06-20] MEDS: SODIUM CHLOR 0.9% PF (SALINE LOCK) 10ML VIAL/SYR IV SCH ×5 (06:00→23:16)
[2020-06-20] MEDS: InsuLIN REG 1unit/0.01ml Soln (100units/ml) SC SCH ×3 (06:00→17:51)
[2020-06-20] MEDS: ACCU-CHEK COMFORT CURVE STRIP VI SCH ×3 (06:00→17:51)
[2020-06-20] MEDS: PHENYLEPHRINE IV 250 ML IV SCH ×3 (06:40→23:20)
[2020-06-20] MEDS: ALBUTEROL SULF 2.5 MG/0.5ML(0.5%) NEB SOLN NEB SCH ×3 (06:50→19:35)
[2020-06-20] MEDS: PROPOFOL 100 ML IV SCH ×7 (09:06→22:45)
[2020-06-20] MEDS: ACETAMINOPHEN 500 MG TAB PO PRN (09:07)
[2020-06-20] MEDS: MIDAZOLAM DRIP 50 mg/50mL 50 ML IV SCH ×3 (09:54→17:23)
[2020-06-20] MEDS: BUDESONIDE (INHALATION) 0.5 MG/2 ML NEB NEB SCH ×2 (10:00→19:35)
[2020-06-20] MEDS: DexAMETHasone SOD PHOS 10MG/1ML VIAL INJ IV SCH (10:06)
[2020-06-20] MEDS: FUROSEMIDE 20 MG/2 ML VIAL IV SCH (10:10)
[2020-06-20] MEDS: FAMOTIDINE INJECTION 40 MG in SODIUM CHL 0.9% 100 ML IV SCH (10:12)
[2020-06-20] MEDS: NOREPINEPHRINE 8 MG/250ML KIT 250 ML IV SCH (10:15)
[2020-06-20] MEDS: ZINC SULFATE 220mg CAP or TAB PO SCH (10:21)
[2020-06-20] MEDS: ASCORBIC ACID 1,000 MG TAB PO SCH (10:22)
[2020-06-20] MEDS: ENOXAPARIN SOD 40 MG/0.4 ML SYRINGE SC SCH ×2 (10:22→23:16)
[2020-06-20] MEDS: CHOLECALCIFEROL (VITD3) 2,000 UNIT CAP PO SCH (10:22)
[2020-06-20] MEDS: fentaNYL Drip 2500mCg/250mlNS 250 ML IV SCH (17:25)
[2020-06-20] MEDS: TPN PER PHARMACY IV NR ×8 (20:28)
[2020-06-21] VITALS (98 sets, daily range): BP systolic 84–138; BP diastolic 42–69
[2020-06-21] MEDS: PROPOFOL 100 ML IV SCH ×10 (00:30→23:07)
[2020-06-21] MEDS: MIDAZOLAM DRIP 50 mg/50mL 50 ML IV SCH ×5 (03:00→20:38)
[2020-06-21] MEDS: ACCU-CHEK COMFORT CURVE STRIP VI SCH ×4 (06:00→18:07)
[2020-06-21] MEDS: InsuLIN REG 1unit/0.01ml Soln (100units/ml) SC SCH ×4 (06:00→18:07)
[2020-06-21] MEDS: SODIUM CHLOR 0.9% PF (SALINE LOCK) 10ML VIAL/SYR IV SCH ×5 (06:02→22:00)
[2020-06-21 06:09] LABS: Basophils # (auto) 0 10 ^3/uL (0-0.2); Eosinophils # (auto) 0.2 10 ^3/uL (0-0.8); Lymphocytes # (auto) 0.9 10 ^3/uL (0.4-5.4); Monocytes # (auto) 0.5 10 ^3/uL (0-1.3); Red Blood Cells 2.19 10^6/uL (4.5-5.90); White Blood Cell 6.5 10^3/uL (4.4-10.8)
[2020-06-21 06:11] LABS: Basophils % (auto) 0.5 % (0.0-2.0); Lymphocytes % (auto) 13.1 % (10.0-50.0); Mean Corpuscular Hemoglobin 32.2 pg (28.0-32.0); Mean Corpuscular Hgb Conc. 33.6 g/dL (32.0-36.0); Mean Corpuscular Volume 95.7 fL (80.0-100.0); Monocytes % (auto) 7.6 % (0.0-12.0); Neutrophils # (auto) 4.9 10 ^3/uL (1.6-8.6); Neutrophils % (auto) 75.8 % (37.0-80.0); Nucleated Red Blood Cells % 0.2 %; Platelet Count (auto) 186 10^3/uL (140-450); Red Cell Distribution Width 14.8 % (11.8-14.3)
[2020-06-21 06:17] LABS: Hemoglobin 7.1 g/dL (13.5-17.5)
[2020-06-21] MEDS: BUDESONIDE (INHALATION) 0.5 MG/2 ML NEB NEB SCH ×2 (06:54→22:42)
[2020-06-21] MEDS: ALBUTEROL SULF 2.5 MG/0.5ML(0.5%) NEB SOLN NEB SCH ×3 (06:54→22:42)
[2020-06-21] MEDS: PHENYLEPHRINE IV 250 ML IV SCH ×2 (07:40→16:00)
[2020-06-21] MEDS: fentaNYL Drip 2500mCg/250mlNS 250 ML IV SCH ×2 (07:54→20:05)
[2020-06-21] MEDS: FUROSEMIDE 20 MG/2 ML VIAL IV SCH (09:43)
[2020-06-21] MEDS: ENOXAPARIN SOD 40 MG/0.4 ML SYRINGE SC SCH (09:44)
[2020-06-21] MEDS: ASCORBIC ACID 1,000 MG TAB PO SCH (09:44)
[2020-06-21] MEDS: CHOLECALCIFEROL (VITD3) 2,000 UNIT CAP PO SCH (09:44)
[2020-06-21] MEDS: ZINC SULFATE 220mg CAP or TAB PO SCH (09:48)
[2020-06-21] MEDS: DexAMETHasone SOD PHOS 10MG/1ML VIAL INJ IV SCH (09:50)
[2020-06-21 10:10] LABS: Albumin 1.8 g/dL (3.4-5.0); Magnesium 2.2 mg/dL (1.6-2.6)
[2020-06-21] MEDS: FAMOTIDINE INJECTION 40 MG in SODIUM CHL 0.9% 100 ML IV SCH (10:11)
[2020-06-21 10:13] LABS: BUN/Creatinine Ratio 42.6; Bilirubin, Total 0.3 mg/dL (0.2-1.0); Phosphorus 3.6 mg/dL (2.5-4.90)
[2020-06-21] MEDS: NOREPINEPHRINE 8 MG/250ML KIT 250 ML IV SCH (10:15)
[2020-06-21] MEDS: POTASSIUM CHL 20MEQ/100ML 100 ML IV SCH ×2 (12:20→13:27)
[2020-06-21] MEDS ORDERED: PANTOPRAZOLE 40 MG/10 ML VIAL INJ IV ONE (16:00)
[2020-06-21] MEDS: TPN PER PHARMACY IV NR ×16 (19:53→20:07)
[2020-06-21] MEDS: PANTOPRAZOLE 40 MG/10 ML VIAL INJ IV SCH (22:00)
[2020-06-22] VITALS (100 sets, daily range): BP systolic 69–168; BP diastolic 47–162
[2020-06-22] MEDS: PHENYLEPHRINE IV 250 ML IV SCH ×3 (00:20→17:00)
[2020-06-22] MEDS: MIDAZOLAM DRIP 50 mg/50mL 50 ML IV SCH ×3 (01:22→22:10)
[2020-06-22] MEDS: PROPOFOL 100 ML IV SCH ×5 (01:50→22:10)
[2020-06-22 04:52] LABS: Basophils # (auto) 0 10 ^3/uL (0-0.2); Eosinophils # (auto) 0.3 10 ^3/uL (0-0.8); Hemoglobin 7.1 g/dL (13.5-17.5); Lymphocytes # (auto) 0.9 10 ^3/uL (0.4-5.4); Monocytes # (auto) 0.6 10 ^3/uL (0-1.3); Neutrophils # (auto) 7.4 10 ^3/uL (1.6-8.6); Neutrophils % (auto) 80.3 % (37.0-80.0); White Blood Cell 9.2 10^3/uL (4.4-10.8)
[2020-06-22 04:55] LABS: Basophils % (auto) 0.3 % (0.0-2.0); Eosinophils % (auto) 3.1 % (0.0-7.0); Lymphocytes % (auto) 9.8 % (10.0-50.0); Mean Corpuscular Hemoglobin 30.1 pg (28.0-32.0); Mean Corpuscular Hgb Conc. 33.9 g/dL (32.0-36.0); Mean Corpuscular Volume 88.7 fL (80.0-100.0); Monocytes % (auto) 6.5 % (0.0-12.0); Platelet Count (auto) 228 10^3/uL (140-450); Red Blood Cells 2.36 10^6/uL (4.5-5.90)
[2020-06-22 05:22] LABS: Potassium 3.8 mmol/L (3.5-5.1)
[2020-06-22 05:31] LABS: Albumin 1.9 g/dL (3.4-5.0); BUN/Creatinine Ratio 45.7; Bilirubin, Total 0.4 mg/dL (0.2-1.0); Calcium 8.3 mg/dL (8.5-10.1); Magnesium 2.2 mg/dL (1.6-2.6); Phosphorus 3.4 mg/dL (2.5-4.90)
[2020-06-22] MEDS: ACCU-CHEK COMFORT CURVE STRIP VI SCH ×4 (06:00→18:04)
[2020-06-22] MEDS: InsuLIN REG 1unit/0.01ml Soln (100units/ml) SC SCH ×4 (06:00→17:57)
[2020-06-22] MEDS: SODIUM CHLOR 0.9% PF (SALINE LOCK) 10ML VIAL/SYR IV SCH ×5 (06:00→22:00)
[2020-06-22] MEDS: BUDESONIDE (INHALATION) 0.5 MG/2 ML NEB NEB SCH ×2 (06:42→21:57)
[2020-06-22] MEDS: ALBUTEROL SULF 2.5 MG/0.5ML(0.5%) NEB SOLN NEB SCH ×3 (06:43→21:56)
[2020-06-22] MEDS: FUROSEMIDE 20 MG/2 ML VIAL IV SCH (09:08)
[2020-06-22] MEDS: PANTOPRAZOLE 40 MG/10 ML VIAL INJ IV SCH ×2 (09:09→22:00)
[2020-06-22] MEDS: ASCORBIC ACID 1,000 MG TAB PO SCH (09:10)
[2020-06-22] MEDS: ZINC SULFATE 220mg CAP or TAB PO SCH (09:10)
[2020-06-22] MEDS: CHOLECALCIFEROL (VITD3) 2,000 UNIT CAP PO SCH (09:12)
[2020-06-22] MEDS: DexAMETHasone SOD PHOS 10MG/1ML VIAL INJ IV SCH (10:00)
[2020-06-22] MEDS: NOREPINEPHRINE 8 MG/250ML KIT 250 ML IV SCH (10:15)
[2020-06-22] MEDS: TPN PER PHARMACY IV NR ×8 (19:50)
[2020-06-22] MEDS ORDERED: TPN PER PHARMACY IV NR ×10 (20:00)
[2020-06-22] MEDS: fentaNYL Drip 2500mCg/250mlNS 250 ML IV SCH (20:37)
[2020-06-23] VITALS (95 sets, daily range): BP systolic 117–157; BP diastolic 48–73
[2020-06-23] MEDS: PROPOFOL 100 ML IV SCH ×9 (00:45→22:56)
[2020-06-23] MEDS: PHENYLEPHRINE IV 250 ML IV SCH ×3 (01:20→18:00)
[2020-06-23] MEDS: MIDAZOLAM DRIP 50 mg/50mL 50 ML IV SCH ×6 (01:21→22:56)
[2020-06-23 04:56] LABS: Potassium 4.1 mmol/L (3.5-5.1)
[2020-06-23 05:06] LABS: Albumin 1.9 g/dL (3.4-5.0); Bilirubin, Total 0.4 mg/dL (0.2-1.0); Calcium 8.3 mg/dL (8.5-10.1); Magnesium 2.3 mg/dL (1.6-2.6); Phosphorus 3.4 mg/dL (2.5-4.90); Total Protein 5.1 g/dL (6.4-8.2)
[2020-06-23] MEDS: SODIUM CHLOR 0.9% PF (SALINE LOCK) 10ML VIAL/SYR IV SCH ×5 (06:00→22:00)
[2020-06-23] MEDS: ACCU-CHEK COMFORT CURVE STRIP VI SCH ×4 (06:00→17:45)
[2020-06-23] MEDS: InsuLIN REG 1unit/0.01ml Soln (100units/ml) SC SCH ×4 (06:00→17:50)
[2020-06-23] MEDS: BUDESONIDE (INHALATION) 0.5 MG/2 ML NEB NEB SCH ×2 (07:14→20:03)
[2020-06-23] MEDS: ALBUTEROL SULF 2.5 MG/0.5ML(0.5%) NEB SOLN NEB SCH ×3 (07:14→20:03)
[2020-06-23 07:34] LABS: Hemoglobin 10.6 g/dL (13.5-17.5); Mean Corpuscular Hemoglobin 30.5 pg (28.0-32.0); Mean Corpuscular Hgb Conc. 34.2 g/dL (32.0-36.0); Mean Corpuscular Volume 89.4 fL (80.0-100.0); Platelet Count (auto) 228 10^3/uL (140-450); Red Blood Cells 3.46 10^6/uL (4.5-5.90); Red Cell Distribution Width 15.1 % (11.8-14.3); White Blood Cell 6.3 10^3/uL (4.4-10.8)
[2020-06-23 07:42] LABS: Basophils % (manual) 0 (0.0-2.0); Blast Cells 0; Promyelocytes % 0; Reactive Lymphocytes 0
[2020-06-23] MEDS: fentaNYL Drip 2500mCg/250mlNS 250 ML IV SCH ×2 (07:50→18:00)
[2020-06-23 09:11] LABS: Band Neutrophils % (manual) 25; Eosinophils % (manual) 15 (0-7); Lymphocytes % (manual) 13 (10.0-50.0); Metamyelocytes % 8; Monocytes % (manual) 12 (0-12); Myelocytes % 2
[2020-06-23] MEDS: DexAMETHasone SOD PHOS 10MG/1ML VIAL INJ IV SCH (10:09)
[2020-06-23] MEDS: PANTOPRAZOLE 40 MG/10 ML VIAL INJ IV SCH ×2 (10:10→22:00)
[2020-06-23] MEDS: FUROSEMIDE 20 MG/2 ML VIAL IV SCH (10:10)
[2020-06-23] MEDS: CHOLECALCIFEROL (VITD3) 2,000 UNIT CAP PO SCH (10:10)
[2020-06-23] MEDS: ASCORBIC ACID 1,000 MG TAB PO SCH (10:10)
[2020-06-23] MEDS: ZINC SULFATE 220mg CAP or TAB PO SCH (10:10)
[2020-06-23] MEDS: NOREPINEPHRINE 8 MG/250ML KIT 250 ML IV SCH (10:15)
[2020-06-23] MEDS ORDERED: TPN PER PHARMACY IV NR ×9 (20:00)
[2020-06-24] VITALS (95 sets, daily range): BP systolic 104–151; BP diastolic 42–80
[2020-06-24] MEDS: PROPOFOL 100 ML IV SCH ×8 (01:36→23:20)
[2020-06-24] MEDS: PHENYLEPHRINE IV 250 ML IV SCH ×3 (02:20→19:00)
[2020-06-24] MEDS: MIDAZOLAM DRIP 50 mg/50mL 50 ML IV SCH ×6 (03:08→22:30)
[2020-06-24 05:07] LABS: Hematocrit 21.1 % (41.0-53.0); Hemoglobin 7.3 g/dL (13.5-17.5); Mean Corpuscular Hemoglobin 29.7 pg (28.0-32.0); Mean Corpuscular Hgb Conc. 34.4 g/dL (32.0-36.0); Mean Corpuscular Volume 86.1 fL (80.0-100.0); Platelet Count (auto) 284 10^3/uL (140-450); Red Blood Cells 2.45 10^6/uL (4.5-5.90); Red Cell Distribution Width 13.7 % (11.8-14.3); White Blood Cell 8.9 10^3/uL (4.4-10.8)
[2020-06-24 05:29] LABS: Basophils % (manual) 0 (0.0-2.0); Blast Cells 0; Reactive Lymphocytes 0
[2020-06-24 05:42] LABS: Albumin 1.9 g/dL (3.4-5.0); BUN/Creatinine Ratio 51.2; Bilirubin, Total 0.4 mg/dL (0.2-1.0); Calcium 8.3 mg/dL (8.5-10.1); Magnesium 2.2 mg/dL (1.6-2.6); Phosphorus 3.9 mg/dL (2.5-4.90); Total Protein 5.5 g/dL (6.4-8.2)
[2020-06-24] MEDS: ACCU-CHEK COMFORT CURVE STRIP VI SCH ×5 (06:00→23:00)
[2020-06-24] MEDS: SODIUM CHLOR 0.9% PF (SALINE LOCK) 10ML VIAL/SYR IV SCH ×5 (06:00→22:00)
[2020-06-24] MEDS: InsuLIN REG 1unit/0.01ml Soln (100units/ml) SC SCH ×5 (06:00→23:00)
[2020-06-24] MEDS: ALBUTEROL SULF 2.5 MG/0.5ML(0.5%) NEB SOLN NEB SCH ×2 (07:20→14:00)
[2020-06-24] MEDS: BUDESONIDE (INHALATION) 0.5 MG/2 ML NEB NEB SCH (07:20)
[2020-06-24 07:27] LABS: Band Neutrophils % (manual) 2; Eosinophils % (manual) 9 (0-7); Lymphocytes % (manual) 10 (10.0-50.0); Metamyelocytes % 3; Monocytes % (manual) 3 (0-12); Myelocytes % 1; Promyelocytes % 1
[2020-06-24] MEDS: fentaNYL Drip 2500mCg/250mlNS 250 ML IV SCH ×3 (09:05→18:10)
[2020-06-24] MEDS: FUROSEMIDE 20 MG/2 ML VIAL IV SCH (10:00)
[2020-06-24] MEDS: DexAMETHasone SOD PHOS 10MG/1ML VIAL INJ IV SCH (10:00)
[2020-06-24] MEDS: CHOLECALCIFEROL (VITD3) 2,000 UNIT CAP PO SCH (10:00)
[2020-06-24] MEDS: PANTOPRAZOLE 40 MG/10 ML VIAL INJ IV SCH ×2 (10:00→22:00)
[2020-06-24] MEDS: ASCORBIC ACID 1,000 MG TAB PO SCH (10:00)
[2020-06-24] MEDS: ZINC SULFATE 220mg CAP or TAB PO SCH (10:00)
[2020-06-24] MEDS: NOREPINEPHRINE 8 MG/250ML KIT 250 ML IV SCH (10:15)
[2020-06-24] MEDS ORDERED: ROCURONIUM 10MG/ML 10ML VIAL IV ONE ×2 (11:30→11:45)
[2020-06-24] MEDS: ACETAMINOPHEN 500 MG TAB PO PRN (12:45)
[2020-06-24] MEDS ORDERED: ALBUTEROL SULF 2.5 MG/0.5ML(0.5%) NEB SOLN NEB PRN (16:45)
[2020-06-24] MEDS ORDERED: TPN PER PHARMACY IV NR ×9 (20:00)
[2020-06-25] VITALS (91 sets, daily range): BP systolic 107–181; BP diastolic 42–77
[2020-06-25] MEDS: ALBUTEROL SULF 2.5 MG/0.5ML(0.5%) NEB SOLN NEB SCH ×4 (00:12→18:22)
[2020-06-25] MEDS: BUDESONIDE (INHALATION) 0.5 MG/2 ML NEB NEB SCH ×3 (00:12→18:22)
[2020-06-25] MEDS: PROPOFOL 100 ML IV SCH ×4 (02:11→15:52)
[2020-06-25] MEDS: PHENYLEPHRINE IV 250 ML IV SCH ×3 (03:20→20:00)
[2020-06-25] MEDS: InsuLIN REG 1unit/0.01ml Soln (100units/ml) SC SCH ×3 (05:29→18:48)
[2020-06-25] MEDS: ACCU-CHEK COMFORT CURVE STRIP VI SCH ×3 (05:29→18:49)
[2020-06-25] MEDS: SODIUM CHLOR 0.9% PF (SALINE LOCK) 10ML VIAL/SYR IV SCH ×5 (05:29→22:00)
[2020-06-25] MEDS: MIDAZOLAM DRIP 50 mg/50mL 50 ML IV SCH ×3 (08:47→16:17)
[2020-06-25] MEDS: FUROSEMIDE 20 MG/2 ML VIAL IV SCH (09:27)
[2020-06-25] MEDS: PANTOPRAZOLE 40 MG/10 ML VIAL INJ IV SCH ×2 (09:28→22:00)
[2020-06-25] MEDS: DexAMETHasone SOD PHOS 10MG/1ML VIAL INJ IV SCH (09:30)
[2020-06-25] MEDS: ZINC SULFATE 220mg CAP or TAB PO SCH (09:31)
[2020-06-25] MEDS: CHOLECALCIFEROL (VITD3) 2,000 UNIT CAP PO SCH (09:31)
[2020-06-25] MEDS: NOREPINEPHRINE 8 MG/250ML KIT 250 ML IV SCH (10:15)
[2020-06-25] MEDS: fentaNYL Drip 2500mCg/250mlNS 250 ML IV SCH ×2 (10:23→17:56)
[2020-06-25] MEDS: ASCORBIC ACID 1,000 MG TAB PO SCH (10:24)
[2020-06-25] MEDS ORDERED: QUEtiapine FUMARATE 25 MG TAB PO ONE (10:30)
[2020-06-25 13:09] LABS: White Blood Cell 9.2 10^3/uL (4.4-10.8)
[2020-06-25 13:11] LABS: Hematocrit 21.3 % (41.0-53.0); Hemoglobin 7.9 g/dL (13.5-17.5); Mean Corpuscular Hemoglobin 33.6 pg (28.0-32.0); Mean Corpuscular Hgb Conc. 37.2 g/dL (32.0-36.0); Mean Corpuscular Volume 90.1 fL (80.0-100.0); Platelet Count (auto) 279 10^3/uL (140-450); Red Blood Cells 2.37 10^6/uL (4.5-5.90); Red Cell Distribution Width 14.1 % (11.8-14.3)
[2020-06-25 13:21] LABS: Band Neutrophils % (manual) 0; Basophils % (manual) 0 (0.0-2.0); Blast Cells 0; Promyelocytes % 0; Reactive Lymphocytes 0
[2020-06-25 13:53] LABS: Calcium 7.7 mg/dL (8.5-10.1); Magnesium 2.2 mg/dL (1.6-2.6); Potassium 4.1 mmol/L (3.5-5.1)
[2020-06-25 14:09] LABS: Total Protein 5.8 g/dL (6.4-8.2)
[2020-06-25] MEDS ORDERED: VANCOMYCIN PER PHARMACY 0 MG IV SCH (14:30)
[2020-06-25 14:40] LABS: BUN/Creatinine Ratio 51.1
[2020-06-25] MEDS: ACETAMINOPHEN IV 1000 MG/100ML (10MG/ML) IV PRN (15:40)
[2020-06-25 15:46] LABS: Eosinophils % (manual) 2 (0-7); Lymphocytes % (manual) 5 (10.0-50.0); Metamyelocytes % 3; Monocytes % (manual) 1 (0-12); Myelocytes % 4
[2020-06-25] MEDS: VANCOMYCIN 1GM/250ML 250 ML IV SCH (16:32)
[2020-06-25 16:54] LABS: Pre Albumin 31.3 mg/dL (20.0-40.0)
[2020-06-25] MEDS: TPN PER PHARMACY IV NR ×8 (21:15)
[2020-06-25] MEDS: QUEtiapine FUMARATE 25 MG TAB PO SCH (23:18)
[2020-06-26] VITALS (97 sets, daily range): BP systolic 118–182; BP diastolic 50–86
[2020-06-26] MEDS: PHENYLEPHRINE IV 250 ML IV SCH ×3 (04:20→22:05)
[2020-06-26] MEDS: SODIUM CHLOR 0.9% PF (SALINE LOCK) 10ML VIAL/SYR IV SCH ×3 (06:00→22:11)
[2020-06-26] MEDS: ACCU-CHEK COMFORT CURVE STRIP VI SCH ×5 (06:00→23:59)
[2020-06-26] MEDS: InsuLIN REG 1unit/0.01ml Soln (100units/ml) SC SCH ×5 (06:00→23:59)
[2020-06-26 06:30] LABS: Basophils # (auto) 0.1 10 ^3/uL (0-0.2); Hemoglobin 7.5 g/dL (13.5-17.5); Lymphocytes % (auto) 10.1 % (10.0-50.0); Monocytes # (auto) 0.6 10 ^3/uL (0-1.3)
[2020-06-26 06:32] LABS: Basophils % (auto) 0.7 % (0.0-2.0); Eosinophils # (auto) 0.5 10 ^3/uL (0-0.8); Eosinophils % (auto) 4.9 % (0.0-7.0); Hematocrit 23.5 % (41.0-53.0); Mean Corpuscular Hemoglobin 29.4 pg (28.0-32.0); Mean Corpuscular Volume 91.9 fL (80.0-100.0); Monocytes % (auto) 6.1 % (0.0-12.0); Neutrophils # (auto) 7.6 10 ^3/uL (1.6-8.6); Neutrophils % (auto) 78.2 % (37.0-80.0); Platelet Count (auto) 286 10^3/uL (140-450); Red Blood Cells 2.56 10^6/uL (4.5-5.90); Red Cell Distribution Width 14.7 % (11.8-14.3); White Blood Cell 9.7 10^3/uL (4.4-10.8)
[2020-06-26] MEDS: BUDESONIDE (INHALATION) 0.5 MG/2 ML NEB NEB SCH ×2 (06:38→19:47)
[2020-06-26] MEDS: ALBUTEROL SULF 2.5 MG/0.5ML(0.5%) NEB SOLN NEB SCH ×3 (06:39→19:47)
[2020-06-26] MEDS: PROPOFOL 100 ML IV SCH ×5 (07:26→21:00)
[2020-06-26 08:49] LABS: Magnesium 2.1 mg/dL (1.6-2.6); Potassium 4.1 mmol/L (3.5-5.1)
[2020-06-26 08:56] LABS: Albumin 2.2 g/dL (3.4-5.0); BUN/Creatinine Ratio 46.2; Bilirubin, Total 0.6 mg/dL (0.2-1.0); Calcium 8.6 mg/dL (8.5-10.1); Phosphorus 3.5 mg/dL (2.5-4.90); Total Protein 6.2 g/dL (6.4-8.2)
[2020-06-26] MEDS: VANCOMYCIN 1GM/250ML 250 ML IV SCH ×3 (09:21→16:22)
[2020-06-26] MEDS: DexAMETHasone SOD PHOS 10MG/1ML VIAL INJ IV SCH (09:25)
[2020-06-26] MEDS: FUROSEMIDE 20 MG/2 ML VIAL IV SCH (09:26)
[2020-06-26] MEDS: QUEtiapine FUMARATE 25 MG TAB PO SCH ×2 (09:27→22:15)
[2020-06-26] MEDS: PANTOPRAZOLE 40 MG/10 ML VIAL INJ IV SCH ×2 (09:27→22:15)
[2020-06-26] MEDS: ZINC SULFATE 220mg CAP or TAB PO SCH (09:27)
[2020-06-26] MEDS: ASCORBIC ACID 1,000 MG TAB PO SCH (09:28)
[2020-06-26] MEDS: CHOLECALCIFEROL (VITD3) 2,000 UNIT CAP PO SCH (09:28)
[2020-06-26] MEDS: ACETAMINOPHEN IV 1000 MG/100ML (10MG/ML) IV PRN (10:00)
[2020-06-26] MEDS: NOREPINEPHRINE 8 MG/250ML KIT 250 ML IV SCH (10:15)
[2020-06-26] MEDS: fentaNYL Drip 2500mCg/250mlNS 250 ML IV SCH ×2 (13:12→21:00)
[2020-06-26] MEDS: hydrALAZINE HCL 20 MG/ML VL IV PRN ×2 (13:16→16:21)
[2020-06-26] MEDS: MEROPENEM 1GM IVPB 100 ML IV SCH ×2 (14:49→22:15)
[2020-06-26] MEDS: LORazepam 2MG/ML-1ML VIAL IV PRN ×4 (18:07→18:23)
[2020-06-26] MEDS ORDERED: LORazepam 2MG/ML-1ML VIAL IV ONE (18:30)
[2020-06-26] MEDS: TPN PER PHARMACY IV NR ×8 (19:52)
[2020-06-26] MEDS ORDERED: TPN PER PHARMACY IV NR ×8 (20:00)
[2020-06-26] MEDS: MIDAZOLAM DRIP 50 mg/50mL 50 ML IV SCH ×2 (20:03→22:06)
[2020-06-27] VITALS (99 sets, daily range): BP systolic 102–152; BP diastolic 47–76
[2020-06-27] MEDS: MIDAZOLAM DRIP 50 mg/50mL 50 ML IV SCH ×2 (01:01→04:28)
[2020-06-27] MEDS: PROPOFOL 100 ML IV SCH ×3 (01:27→03:42)
[2020-06-27] MEDS ORDERED: levETIRAcetam 500 MG/5ML INJ IV ONE (02:01)
[2020-06-27] MEDS: fentaNYL Drip 2500mCg/250mlNS 250 ML IV SCH ×2 (04:29→23:47)
[2020-06-27 04:31] LABS: Eosinophils # (auto) 0.4 10 ^3/uL (0-0.8); Eosinophils % (auto) 3.9 % (0.0-7.0); Hematocrit 23.5 % (41.0-53.0); Monocytes # (auto) 0.4 10 ^3/uL (0-1.3)
[2020-06-27 04:34] LABS: Basophils # (auto) 0 10 ^3/uL (0-0.2); Basophils % (auto) 0.4 % (0.0-2.0); Lymphocytes % (auto) 9.7 % (10.0-50.0); Mean Corpuscular Hemoglobin 29.5 pg (28.0-32.0); Mean Corpuscular Hgb Conc. 33.8 g/dL (32.0-36.0); Mean Corpuscular Volume 87.1 fL (80.0-100.0); Monocytes % (auto) 4.1 % (0.0-12.0); Neutrophils # (auto) 8.1 10 ^3/uL (1.6-8.6); Neutrophils % (auto) 81.9 % (37.0-80.0); Nucleated Red Blood Cells % 0.1 %; Platelet Count (auto) 255 10^3/uL (140-450); Red Cell Distribution Width 14.2 % (11.8-14.3); White Blood Cell 9.8 10^3/uL (4.4-10.8)
[2020-06-27 04:43] LABS: Calcium 8.5 mg/dL (8.5-10.1); Magnesium 2.3 mg/dL (1.6-2.6); Potassium 3.6 mmol/L (3.5-5.1)
[2020-06-27 04:48] LABS: BUN/Creatinine Ratio 65.7; Bilirubin, Total 0.5 mg/dL (0.2-1.0); Phosphorus 3.5 mg/dL (2.5-4.90); Total Protein 5.4 g/dL (6.4-8.2)
[2020-06-27] MEDS: PHENYLEPHRINE IV 250 ML IV SCH ×3 (04:55→21:01)
[2020-06-27] MEDS: InsuLIN REG 1unit/0.01ml Soln (100units/ml) SC SCH ×3 (05:19→17:41)
[2020-06-27] MEDS: ACCU-CHEK COMFORT CURVE STRIP VI SCH ×4 (05:19→23:59)
[2020-06-27] MEDS: MEROPENEM 1GM IVPB 100 ML IV SCH ×3 (05:26→21:00)
[2020-06-27] MEDS: BUDESONIDE (INHALATION) 0.5 MG/2 ML NEB NEB SCH ×2 (06:45→21:56)
[2020-06-27] MEDS: ALBUTEROL SULF 2.5 MG/0.5ML(0.5%) NEB SOLN NEB SCH ×3 (06:45→21:56)
[2020-06-27] MEDS: VANCOMYCIN 1GM/250ML 250 ML IV SCH ×4 (08:07→23:59)
[2020-06-27] MEDS: DexAMETHasone SOD PHOS 10MG/1ML VIAL INJ IV SCH (09:52)
[2020-06-27] MEDS: SODIUM CHLOR 0.9% PF (SALINE LOCK) 10ML VIAL/SYR IV SCH ×2 (09:53→21:01)
[2020-06-27] MEDS: FUROSEMIDE 20 MG/2 ML VIAL IV SCH (09:53)
[2020-06-27] MEDS: PANTOPRAZOLE 40 MG/10 ML VIAL INJ IV SCH ×2 (09:53→21:00)
[2020-06-27] MEDS: ZINC SULFATE 220mg CAP or TAB PO SCH (09:53)
[2020-06-27] MEDS: QUEtiapine FUMARATE 25 MG TAB PO SCH ×2 (09:54→21:01)
[2020-06-27] MEDS: CHOLECALCIFEROL (VITD3) 2,000 UNIT CAP PO SCH (09:54)
[2020-06-27] MEDS: ASCORBIC ACID 1,000 MG TAB PO SCH (09:54)
[2020-06-27] MEDS: NOREPINEPHRINE 8 MG/250ML KIT 250 ML IV SCH (09:54)
[2020-06-27] MEDS ORDERED: TPN PER PHARMACY IV ONE ×9 (12:00)
[2020-06-27] MEDS ORDERED: TPN PER PHARMACY IV NR ×9 (20:00)
[2020-06-28] VITALS (92 sets, daily range): BP systolic 99–151; BP diastolic 46–75
[2020-06-28] MEDS: PROPOFOL 100 ML IV SCH ×8 (00:02→21:00)
[2020-06-28] MEDS: MIDAZOLAM DRIP 50 mg/50mL 50 ML IV SCH ×4 (01:30→21:00)
[2020-06-28 04:53] LABS: Basophils # (auto) 0.1 10 ^3/uL (0-0.2); Eosinophils # (auto) 0.4 10 ^3/uL (0-0.8); Hemoglobin 7.8 g/dL (13.5-17.5); Monocytes # (auto) 0.5 10 ^3/uL (0-1.3); Nucleated Red Blood Cells % 0.1 %; Platelet Count (auto) 242 10^3/uL (140-450); Red Blood Cells 2.62 10^6/uL (4.5-5.90); White Blood Cell 9.4 10^3/uL (4.4-10.8)
[2020-06-28 04:57] LABS: Basophils % (auto) 0.7 % (0.0-2.0); Eosinophils % (auto) 4.6 % (0.0-7.0); Lymphocytes % (auto) 11.1 % (10.0-50.0); Mean Corpuscular Hemoglobin 29.7 pg (28.0-32.0); Mean Corpuscular Hgb Conc. 33.8 g/dL (32.0-36.0); Mean Corpuscular Volume 87.9 fL (80.0-100.0); Monocytes % (auto) 5.1 % (0.0-12.0); Neutrophils # (auto) 7.4 10 ^3/uL (1.6-8.6); Neutrophils % (auto) 78.5 % (37.0-80.0); Red Cell Distribution Width 14.5 % (11.8-14.3)
[2020-06-28 05:09] LABS: Potassium 3.8 mmol/L (3.5-5.1)
[2020-06-28 05:17] LABS: Albumin 1.9 g/dL (3.4-5.0); BUN/Creatinine Ratio 63.6; Bilirubin, Total 0.4 mg/dL (0.2-1.0); Calcium 8.4 mg/dL (8.5-10.1); Magnesium 2.1 mg/dL (1.6-2.6); Total Protein 5.3 g/dL (6.4-8.2)
[2020-06-28] MEDS: MEROPENEM 1GM IVPB 100 ML IV SCH ×3 (05:46→22:00)
[2020-06-28] MEDS: ACCU-CHEK COMFORT CURVE STRIP VI SCH ×3 (05:46→17:37)
[2020-06-28] MEDS: InsuLIN REG 1unit/0.01ml Soln (100units/ml) SC SCH ×4 (05:46→17:39)
[2020-06-28] MEDS: PHENYLEPHRINE IV 250 ML IV SCH ×3 (06:20→23:00)
[2020-06-28] MEDS: fentaNYL Drip 2500mCg/250mlNS 250 ML IV SCH ×2 (07:02→15:15)
[2020-06-28] MEDS: BUDESONIDE (INHALATION) 0.5 MG/2 ML NEB NEB SCH ×2 (07:10→18:34)
[2020-06-28] MEDS: ALBUTEROL SULF 2.5 MG/0.5ML(0.5%) NEB SOLN NEB SCH ×2 (07:10→18:34)
[2020-06-28] MEDS: VANCOMYCIN 1GM/250ML 250 ML IV SCH ×2 (09:44→18:30)
[2020-06-28] MEDS: FUROSEMIDE 20 MG/2 ML VIAL IV SCH (09:47)
[2020-06-28] MEDS: DexAMETHasone SOD PHOS 10MG/1ML VIAL INJ IV SCH (09:47)
[2020-06-28] MEDS: ZINC SULFATE 220mg CAP or TAB PO SCH (09:48)
[2020-06-28] MEDS: CHOLECALCIFEROL (VITD3) 2,000 UNIT CAP PO SCH (09:48)
[2020-06-28] MEDS: PANTOPRAZOLE 40 MG/10 ML VIAL INJ IV SCH ×2 (09:48→22:00)
[2020-06-28] MEDS: ASCORBIC ACID 1,000 MG TAB PO SCH (10:00)
[2020-06-28] MEDS: NOREPINEPHRINE 8 MG/250ML KIT 250 ML IV SCH (10:15)
[2020-06-28] MEDS: SODIUM CHLOR 0.9% PF (SALINE LOCK) 10ML VIAL/SYR IV SCH ×2 (10:30→22:00)
[2020-06-28] MEDS ORDERED: TPN PER PHARMACY IV NR ×9 (20:00)
[2020-06-29] VITALS (75 sets, daily range): BP systolic 107–188; BP diastolic 41–84
[2020-06-29] MEDS: MIDAZOLAM DRIP 50 mg/50mL 50 ML IV SCH ×3 (01:00→10:19)
[2020-06-29] MEDS: PROPOFOL 100 ML IV SCH ×3 (02:28→10:19)
[2020-06-29] MEDS: fentaNYL Drip 2500mCg/250mlNS 250 ML IV SCH ×2 (02:32→06:00)
[2020-06-29 05:12] LABS: Potassium 3.9 mmol/L (3.5-5.1)
[2020-06-29 05:14] LABS: Basophils # (auto) 0.1 10 ^3/uL (0-0.2); Basophils % (auto) 0.7 % (0.0-2.0); Eosinophils # (auto) 0.3 10 ^3/uL (0-0.8); Eosinophils % (auto) 4.2 % (0.0-7.0); Hematocrit 22.3 % (41.0-53.0); Hemoglobin 7.4 g/dL (13.5-17.5); Lymphocytes # (auto) 1.1 10 ^3/uL (0.4-5.4); Lymphocytes % (auto) 14.6 % (10.0-50.0); Mean Corpuscular Hemoglobin 28.3 pg (28.0-32.0); Mean Corpuscular Hgb Conc. 33.3 g/dL (32.0-36.0); Monocytes # (auto) 0.5 10 ^3/uL (0-1.3); Monocytes % (auto) 6.8 % (0.0-12.0); Neutrophils # (auto) 5.6 10 ^3/uL (1.6-8.6); Neutrophils % (auto) 73.7 % (37.0-80.0); Platelet Count (auto) 236 10^3/uL (140-450); Red Blood Cells 2.63 10^6/uL (4.5-5.90); Red Cell Distribution Width 15.5 % (11.8-14.3); White Blood Cell 7.6 10^3/uL (4.4-10.8)
[2020-06-29 05:19] LABS: Albumin 2.1 g/dL (3.4-5.0); BUN/Creatinine Ratio 69.4; Bilirubin, Total 0.3 mg/dL (0.2-1.0); Calcium 8.4 mg/dL (8.5-10.1); Pre Albumin 26.6 mg/dL (20.0-40.0); Total Protein 5.5 g/dL (6.4-8.2)
[2020-06-29] MEDS: ACCU-CHEK COMFORT CURVE STRIP VI SCH ×5 (05:40→23:21)
[2020-06-29] MEDS: MEROPENEM 1GM IVPB 100 ML IV SCH ×3 (05:40→22:00)
[2020-06-29] MEDS: InsuLIN REG 1unit/0.01ml Soln (100units/ml) SC SCH ×5 (05:41→18:00)
[2020-06-29] MEDS: ALBUTEROL SULF 2.5 MG/0.5ML(0.5%) NEB SOLN NEB SCH ×2 (06:00→14:00)
[2020-06-29] MEDS: PHENYLEPHRINE IV 250 ML IV SCH ×2 (07:20→15:40)
[2020-06-29] MEDS: VANCOMYCIN 1GM/250ML 250 ML IV SCH ×4 (08:17→23:21)
[2020-06-29] MEDS: SODIUM CHLOR 0.9% PF (SALINE LOCK) 10ML VIAL/SYR IV SCH ×2 (09:38→22:00)
[2020-06-29] MEDS: ZINC SULFATE 220mg CAP or TAB PO SCH (09:39)
[2020-06-29] MEDS: CHOLECALCIFEROL (VITD3) 2,000 UNIT CAP PO SCH (09:39)
[2020-06-29] MEDS: ASCORBIC ACID 1,000 MG TAB PO SCH (09:39)
[2020-06-29] MEDS: DexAMETHasone SOD PHOS 10MG/1ML VIAL INJ IV SCH (09:40)
[2020-06-29] MEDS: PANTOPRAZOLE 40 MG/10 ML VIAL INJ IV SCH ×2 (09:40→22:00)
[2020-06-29] MEDS: FUROSEMIDE 20 MG/2 ML VIAL IV SCH (09:42)
[2020-06-29] MEDS: BUDESONIDE (INHALATION) 0.5 MG/2 ML NEB NEB SCH (10:00)
[2020-06-29] MEDS: LORazepam 2MG/ML-1ML VIAL IV PRN ×6 (10:02→19:38)
[2020-06-29] MEDS: NOREPINEPHRINE 8 MG/250ML KIT 250 ML IV SCH (10:15)
[2020-06-29] MEDS: MORPHINE SULF INJ 2 MG/ML SYRINGE 1ML IV PRN ×5 (13:25→19:37)
[2020-06-29] MEDS ORDERED: TPN PER PHARMACY IV NR ×20 (20:00)
[2020-06-29] MEDS: ACETAMINOPHEN IV 1000 MG/100ML (10MG/ML) IV PRN (21:52)
[2020-06-30] MEDS: LORazepam 2MG/ML-1ML VIAL IV PRN ×6 (00:23→21:12)
[2020-06-30] MEDS: MORPHINE SULF INJ 2 MG/ML SYRINGE 1ML IV PRN ×6 (00:57→13:01)
[2020-06-30] MEDS: InsuLIN REG 1unit/0.01ml Soln (100units/ml) SC SCH ×4 (06:00→17:39)
[2020-06-30] MEDS: MEROPENEM 1GM IVPB 100 ML IV SCH ×3 (06:00→21:50)
[2020-06-30] MEDS: ACCU-CHEK COMFORT CURVE STRIP VI SCH ×3 (06:02→17:39)
[2020-06-30] MEDS: ACETAMINOPHEN IV 1000 MG/100ML (10MG/ML) IV PRN (06:34)
[2020-06-30 08:00] VITALS: BP 134/95
[2020-06-30] MEDS: DexAMETHasone SOD PHOS 10MG/1ML VIAL INJ IV SCH (09:47)
[2020-06-30] MEDS: VANCOMYCIN 1GM/250ML 250 ML IV SCH ×2 (09:47→17:39)
[2020-06-30] MEDS: PANTOPRAZOLE 40 MG/10 ML VIAL INJ IV SCH ×2 (09:48→21:12)
[2020-06-30] MEDS: ZINC SULFATE 220mg CAP or TAB PO SCH (09:48)
[2020-06-30] MEDS: SODIUM CHLOR 0.9% PF (SALINE LOCK) 10ML VIAL/SYR IV SCH ×2 (09:48→21:12)
[2020-06-30] MEDS: FUROSEMIDE 20 MG/2 ML VIAL IV SCH (09:48)
[2020-06-30] MEDS: CHOLECALCIFEROL (VITD3) 2,000 UNIT CAP PO SCH (09:48)
[2020-06-30] MEDS: ASCORBIC ACID 1,000 MG TAB PO SCH (09:48)
[2020-06-30 16:19] VITALS: BP 148/87
[2020-06-30] MEDS: BUDESONIDE (INHALATION) 0.5 MG/2 ML NEB NEB SCH ×2 (21:50→21:52)
[2020-06-30] MEDS: ALBUTEROL SULF 2.5 MG/0.5ML(0.5%) NEB SOLN NEB SCH ×2 (21:50→21:53)
[2020-06-30] MEDS: hydrALAZINE HCL 20 MG/ML VL IV PRN (21:51)
[2020-06-30 22:00] VITALS: BP 132/73
[2020-06-30 23:43] VITALS: BP 166/63
[2020-07-01] MEDS: VANCOMYCIN 1GM/250ML 250 ML IV SCH ×3 (00:03→16:03)
[2020-07-01] MEDS: ACCU-CHEK COMFORT CURVE STRIP VI SCH ×2 (00:04→05:50)
[2020-07-01] MEDS: LORazepam 2MG/ML-1ML VIAL IV PRN ×13 (00:13→22:10)
[2020-07-01] MEDS: ACETAMINOPHEN IV 1000 MG/100ML (10MG/ML) IV PRN (00:51)
[2020-07-01 05:41] VITALS: BP 151/93
[2020-07-01] MEDS: MEROPENEM 1GM IVPB 100 ML IV SCH ×3 (05:49→22:08)
[2020-07-01] MEDS: MORPHINE SULF INJ 2 MG/ML SYRINGE 1ML IV PRN ×11 (05:50→18:48)
[2020-07-01] MEDS: ALBUTEROL SULF 2.5 MG/0.5ML(0.5%) NEB SOLN NEB SCH ×2 (05:50→14:00)
[2020-07-01] MEDS: InsuLIN REG 1unit/0.01ml Soln (100units/ml) SC SCH ×2 (06:00)
[2020-07-01 08:00] VITALS: BP 159/91
[2020-07-01] MEDS: ASCORBIC ACID 1,000 MG TAB PO SCH (09:43)
[2020-07-01] MEDS: ZINC SULFATE 220mg CAP or TAB PO SCH (09:43)
[2020-07-01] MEDS: CHOLECALCIFEROL (VITD3) 2,000 UNIT CAP PO SCH (09:43)
[2020-07-01] MEDS: BUDESONIDE (INHALATION) 0.5 MG/2 ML NEB NEB SCH ×2 (10:00→22:00)
[2020-07-01] MEDS ORDERED: MORPHINE SULF INJ 2 MG/ML SYRINGE 1ML IV PRN (10:30)
[2020-07-01] MEDS: PANTOPRAZOLE 40 MG/10 ML VIAL INJ IV SCH ×2 (11:07→22:08)
[2020-07-01] MEDS: hydrALAZINE HCL 20 MG/ML VL IV PRN (11:07)
[2020-07-01] MEDS: FUROSEMIDE 20 MG/2 ML VIAL IV SCH (11:08)
[2020-07-01] MEDS: SODIUM CHLOR 0.9% PF (SALINE LOCK) 10ML VIAL/SYR IV SCH ×2 (11:08→22:09)
[2020-07-01 13:40] VITALS: BP 154/95
[2020-07-01 16:00] VITALS: BP 150/81
[2020-07-01] MEDS ORDERED: ACETAMINOPHEN IV 1000 MG/100ML (10MG/ML) IV PRN (17:00)
[2020-07-01] MEDS ORDERED: levETIRAcetam 500 MG/5ML INJ IV ONE (22:59)
[2020-07-01 23:25] VITALS: BP 145/81
[2020-07-02] VITALS: BP 145/81
[2020-07-02] MEDS: VANCOMYCIN 1GM/250ML 250 ML IV SCH ×3 (00:06→08:00)
[2020-07-02] MEDS: MORPHINE SULF INJ 2 MG/ML SYRINGE 1ML IV PRN ×3 (00:23→11:55)
[2020-07-02] MEDS: LORazepam 2MG/ML-1ML VIAL IV PRN ×3 (02:42→11:55)
[2020-07-02 05:15] VITALS: BP 150/84
[2020-07-02] MEDS: MEROPENEM 1GM IVPB 100 ML IV SCH (05:55)
[2020-07-02 08:00] VITALS: BP 156/79
[2020-07-02] MEDS: CHOLECALCIFEROL (VITD3) 2,000 UNIT CAP PO SCH (10:00)
[2020-07-02] MEDS: ZINC SULFATE 220mg CAP or TAB PO SCH (10:00)
[2020-07-02] MEDS: ASCORBIC ACID 1,000 MG TAB PO SCH (10:00)
[2020-07-02] MEDS: FUROSEMIDE 20 MG/2 ML VIAL IV SCH (10:40)
[2020-07-02] MEDS: PANTOPRAZOLE 40 MG/10 ML VIAL INJ IV SCH (10:40)
[2020-07-02] MEDS: SODIUM CHLOR 0.9% PF (SALINE LOCK) 10ML VIAL/SYR IV SCH (10:41)
== END 2020-07-02 13:30 | DRG 870 ==
LOC: EDBD 22:50 → ER 23:02 → TELE 23:03 → ICU WEST 06-15 10:24 → TELE-EAST 06-30 00:09
PROVIDERS: ADMIT Internal Medicine; ATTEND Internal Medicine Geriatric Medicine
PROC: 5A09357 Assistance with Respiratory Ventilation, Less than 24 Consecutive Hours, Continuous Positive Airway Pressure (ICD-10-PCS; 2020-06-08)
PROC: 5A1955Z Respiratory Ventilation, Greater than 96 Consecutive Hours (ICD-10-PCS; principal; 2020-06-09)
PROC: 0BH17EZ Insertion of Endotracheal Airway into Trachea, Via Natural or Artificial Opening (ICD-10-PCS; 2020-06-09)
PROC: XW033E5 Introduction of Remdesivir Anti-infective into Peripheral Vein, Percutaneous Approach, New Technology Group 5 (ICD-10-PCS; 2020-06-11)
PROC: 04HY32Z Insertion of Monitoring Device into Lower Artery, Percutaneous Approach (ICD-10-PCS; 2020-06-14)
PROC: 02HV33Z Insertion of Infusion Device into Superior Vena Cava, Percutaneous Approach (ICD-10-PCS; 2020-06-14)
PROC: 0BJ08ZZ Inspection of Tracheobronchial Tree, Via Natural or Artificial Opening Endoscopic (ICD-10-PCS; 2020-06-16)
PROC: 3E0436Z Introduction of Nutritional Substance into Central Vein, Percutaneous Approach (ICD-10-PCS; 2020-06-19)
DX: A41.89 Other specified sepsis (principal); U07.1 COVID-19; J96.01 Acute respiratory failure with hypoxia; J12.89 Other viral pneumonia; G93.41 Metabolic encephalopathy; I21.4 Non-ST elevation (NSTEMI) myocardial infarction; G93.1 Anoxic brain damage, not elsewhere classified; Z68.41 Body mass index [BMI] 40.0-44.9, adult; Z99.11 Dependence on respirator [ventilator] status; J95.851 Ventilator associated pneumonia; Y84.8 Other medical procedures as the cause of abnormal reaction of the patient, or of later complication, without mention of misadventure at the time of the procedure; I10 Essential (primary) hypertension; E66.01 Morbid (severe) obesity due to excess calories; F09 Unspecified mental disorder due to known physiological condition; D64.9 Anemia, unspecified; Z51.5 Encounter for palliative care; Z66 Do not resuscitate; Z91.5 Personal history of self-harm
CPT/HCPCS: 31500; 31622; 36415; 36600; 70450; 71045; 80048; 80053; 80061; 80202; 81001; 82040; 82306; 82565; 82728; 82805; 82962; 83036; 83605; 83615; 83735; 83880; 84100; 84132; 84443; 84478; 84484; 85007; 85025; 85027; 85379; 85610; 85730; 86141; 87040; 87070; 87077; 87081; 87086; 87186; 87205; 87426; 87804; 93005; 93306; 94002; 94003; 94640; 94660; 95819; 96374; 99291; C9113; G0378; J0131; J0171; J0330; J1100; J1815; J2185; J2250; J2543; J2704; J3480; J3490; J7060; J7131